=== PATIENT | male | born 1980 | race Caucasian/White ===

== ENCOUNTER 2020-10-21 13:06 | Emergency (ER) | payer OTHER, SELFPAY ==
--- NOTE | ~2020-10-21 | XR_ITS ---
EXAMINATION: XR CHEST CLINICAL INFORMATION: Palpitations COMPARISON: None TECHNIQUE: 2 views of the chest were obtained. FINDINGS: The lungs are clear. The heart is normal in size. The vascularity is normal. There is no vascular congestion, airspace consolidation, pleural reaction, or effusion. The hilar and mediastinal contours are normal. There is mild levocurvature lower thoracic spine. XR/XR chest 2V IMPRESSION: Unremarkable examination.
[2020-10-21 13:12] VITALS: BP 156/75; PULSE 106; RESP 18; TEMP 36.6; O2SAT 99; BMI 27.2
--- NOTE | 2020-10-21 14:00 | ECG_ITS ---
Test Reason : CP Blood Pressure : / mmHG Vent. Rate : 086 BPM Atrial Rate : 086 BPM P-R Int : 170 ms QRS Dur : 084 ms QT Int : 348 ms P-R-T Axes : 068 056 059 degrees QTc Int : 416 ms Sinus rhythm with marked sinus arrhythmia Normal EKG No previous ECGs available Referred By: Kylah Haro Electronically Signed By:NANCIE NG
--- NOTE | 2020-10-21 14:01 | ED.ARRPALP ---
HPI - Arrhythmia/Palpitations General Chief Complaint: Arrhythmia/Palpitations Stated Complaint: palpitations - chest pain Time Seen by Provider: 10/21/20 13:47 Source: patient Mode of arrival: ambulatory Limitations: no limitations History of Present Illness HPI narrative: 40-year-old male previously healthy here with complaints of palpitations which occur intermittently for the last week. He tells me he feels some often times when he is at rest and lying in his bed at night time. They do not seem to be worsened with movement or activity. No fevers or chills. No chest pain, shortness of breath, dizziness. No recent travel or illness. No leg swelling or pain. No family history of sudden cardiac . Of note, he did have COVID-19 in June of 2020. Related Data Allergies Allergy/AdvReac Type Severity Reaction Status Date / Time No Known Allergies Allergy Verified 10/21/20 14:00 Review of Systems Review of Systems: Yes all other systems are reviewed and are negative Constitutional: Constitutional: Reports no additional constitutional complaints, Denies body ache(s), Denies chills, Denies fever(s), Denies headache(s) and Denies weakness Eyes: Eyes: Reports no additional eye complaints and Denies change in vision ENT: Reports system reviewed and no additional complaints, except as documented, Denies dizziness, Denies headache(s), Denies nasal congestion, Denies nasal discharge and Denies neck pain Cardiovascular: Cardiovascular: Reports no additional cardiovascular complaints, Denies chest pain, Denies leg edema, Reports palpitations and Denies dyspnea Respiratory: Respiratory: Reports no additional respiratory complaints, Denies cough and Denies dyspnea Gastrointestinal: Gastrointestinal: Reports no additional gastrointestinal complaints, Denies abdominal pain, Denies diarrhea, Denies nausea and Denies vomiting Genitourinary: Genitourinary: Denies urinary incontinence Musculoskeletal: Musculoskeletal: Reports no additional musculoskeletal complaints, Denies back pain, Denies arthralgias, Denies joint swelling, Denies neck pain, Denies numbness and Denies tingling Integumentary/Breasts: Skin/Breast: Reports system reviewed and no additional complaints, except as docu and Denies rash Neurologic: Reports system reviewed and no additional complaints, except as documented, Denies Abnormal speech present, Denies dizziness, Denies headache(s), Denies numbness, Denies tingling and Denies weakness Endocrine: Endocrine: Reports palpitations PMFSH Past Medical History Attestation statement: The following information was validated with the patient. Source: old records reviewed and nursing notes reviewed Social History Social History Patient Tobacco Use Status: Former Tobacco user Use of substances other than those prescribed or required for medical reasons: No Advance Directives: No Advance Directives Information Provided: No Physical Exam Vital Signs: Vital Signs: Last Vital Signs Temp 98 F 10/21/20 13:12 Pulse 101 H 10/21/20 14:13 Resp 20 10/21/20 14:13 BP 108/75 10/21/20 14:13 Pulse Ox 98 10/21/20 14:13 Body Mass Index 27.2 Const: General: cooperative, healthy appearing, comfortable and no acute distress Orientation/consciousness: patient oriented x3 Limitations: no limitations HENMT: Head: Yes normal to inspection Ears: hearing grossly normal bilaterally General nose exam: Normal external nose present Face and sinus: Yes normal facial exam Mouth: Normal oral and palatal mucosa present Throat: Yes posterior oropharynx normal Eyes: General: appearance normal, both eyes and all related structures Pupils: Equal, round and reactive pupils present Neck: Neck: Yes normal visual inspection Chest: Chest palpation & inspection: normal inspection of the chest Resp: Effort & Inspection: normal respiratory effort Auscultation: clear to auscultation bilaterally Cardio: Rate: regular rate Rhythm: regular rhythm Peripheral pulses: Peripheral pulses 2+ throughout GI: Inspection: Yes normal to inspection Palpation (GI): Soft to palpation and nontender Auscultation: normal bowel sounds Back/Spine/Pelvis: Thoracic/Lumbar Spine: thoracic and lumbar spine normal to inspection Skin: General skin exam: no rashes or lesions noted Neuro: General: patient oriented x3, no focal motor deficits and normal sensation to monofilament Cranial nerves: Yes Equal, round and reactive pupils present Cognition (Neuro): normal cognition Speech: No Abnormal speech present Gait exam (Neuro): Normal gait present Motor exam (neuro): 5/5 motor strength present throughout Extrem: General: Yes normal to inspection, Yes no pedal edema and Yes no calf tenderness Course Course Course Narrative: 40-year-old male here with complaints of intermittent palpitations for the last week which seem to occur at rest with no other associated symptoms. Exam is normal. Hemodynamically stable. Will check labs, EKG, chest x-ray 1500- Labs unremarkable. EKG shows no ischemic changes. Chest x-ray negative. Heart rate has been 70-90 sinus rhythm on the radiographer cardiac catheterization with no arrhythmia as or tachycardia is noted. Patient does appear very anxious. I did discuss this with him but he denies feeling anxious. I recommended he follow-up with a primary care doctor. He was provided with a list. Reviewed worrisome signs symptoms of when to return to the emergency department. Comfortable discharge home. MDM - Arrhythmia/Palpitations MDM Narrative Medical decision making narrative: Less likely ACS with symptoms greater than 7 days with a negative troponin and EKG which shows no ischemic changes. Less likely PE with PERC score 0 Differential Diagnosis Differential diagnosis: Likely palpitations, anxiety and sinus tachycardia Medical Records Attestation: I reviewed the patient's medical records. Lab Data Attestation: I reviewed the patient's lab results. Result diagrams: 10/21/20 14:11 10/21/20 14:11 Labs: Lab Results 10/21/20 10/21/20 10/21/20 Range/Units 14:11 14:11 14:11 WBC 9.0 (4.8-10.8) X10*3/uL RBC 4.51 L (4.60-5.80) X10*6/uL Hgb 13.3 L (14.0-18.0) g/dl Hct 37.5 L (42-52) % MCV 83.1 (80-98) fL MCH 29.5 (27.0-33.0) pg MCHC 35.5 (31.0-36.0) g/dl RDW 12.1 (11.0-16.0) % Plt Count 353 (160-400) X10*3/uL MPV 8.7 L (9.4-12.4) fL Immature Gran % (Auto) 0.3 (0.0-0.4) % Neut % (Auto) 72.8 (45-73) % Lymph % (Auto) 17.4 L (20-40) % [place]flower % (Auto) 8.4 (2-11) % Eos % (Auto) 0.4 (0-4) % Baso % (Auto) 0.7 (0-2) % Lymph # (Auto) 1.6 (1.2-4.9) X10*3/uL [place]flower # (Auto) 0.8 (0.1-1.2) X10*3/uL Eos # (Auto) 0.0 (0.0-0.4) X10*3/uL Baso # (Auto) 0.1 (0.0-0.2) X10*3/uL Abs Immat Gran (auto) 0.03 (0.00-0.03) X10*3/uL Absolute Neuts (auto) 6.5 (2.0-8.3) X10*3/uL Absolute Nucleated RBC 0.000 (0.0-0.012) X10*3/uL Nucleated RBC % (auto) 0.0 (0.0-0.2) /100WBC Sodium 141 (135-145) mmol/L Potassium 4.0 (3.3-5.1) mmol/L Chloride 110 H (96-108) mmol/L Carbon Dioxide 23 (22-29) mmol/L Anion Gap 12 (12-20) BUN 13 (9-16) mg/dL Creatinine 0.97 (0.5-1.4) mg/dL Estim Creat Clear Calc 103.4 Estimated GFR > 60 Random Glucose 93 (60-115) mg/dL Calcium 9.3 (8.4-10.2) mg/dL Magnesium 2.0 (1.6-2.6) mg/dL Total Bilirubin 0.3 (0.0-1.0) mg/dL Direct Bilirubin < 0.2 (0.0-0.5) mg/dL AST 18 (5-37) U/L ALT 26 (0-40) U/L Alkaline Phosphatase 87 (39-117) U/L Troponin I High Sens < 3.5 (<3.5-35.0) ng/L Total Protein 6.9 (6.5-8.0) g/dL Albumin 4.3 (3.5-5.0) g/dL TSH 1.09 (0.32-4.0) uIU/mL Imaging Data Chest x-ray: Attestation: I personally reviewed and interpreted this imaging study as follows: Radiologist's impression: EXAMINATION: XR CHEST CLINICAL INFORMATION: Palpitations COMPARISON: None TECHNIQUE: 2 views of the chest were obtained. FINDINGS: The lungs are clear. The heart is normal in size. The vascularity is normal. There is no vascular congestion, airspace consolidation, pleural reaction, or effusion. The hilar and mediastinal contours are normal. There is mild levocurvature lower thoracic spine. XR/XR chest 2V IMPRESSION: Unremarkable examination. ECG Data Attestation: I personally reviewed and interpreted this ECG as follows: ECG interpretation date: 10/21/20 ECG interpretation time: 11:44 Interpretation: normal sinus rhythm with a rate of 95, normal MI, normal QRS, normal QT Discharge Plan Discharge Clinical Impression: Palpitations Patient Disposition: Home, Self-Care Instructions: Heart Palpitations (ED) Additional Instructions: increase fluids, rest Change positions slowly Follow-up with primary care doctor Referrals: Physician,None [Primary Care Provider] - 2 days Interventions: ED Discharge Assessment Last Done: 10/21/20 15:29 Discharge Date/Time: 10/21/20 15:38
[2020-10-21 14:13] VITALS: BP 108/75; PULSE 101; RESP 20; O2SAT 98
[2020-10-21 14:15] LABS: MANUAL DIFF FLAG NO
--- NOTE | 2020-10-21 14:16 | PC.NURSE ---
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 denies chest pain/sob/nausea. normal sinus on the monitor to sinus tach 89-110
[2020-10-21 14:17] LABS: Basophils Absolute Auto 0.1 X10*3/uL (0.0-0.2); Basophils Percent Auto 0.7 % (0-2); Eosinophils Percent Auto 0.4 % (0-4); Hematocrit 37.5 % (42-52); Hemoglobin 13.3 g/dl (14.0-18.0); Imm Gran Abs Auto 0.03 X10*3/uL (0.00-0.03); Imm Gran Pct Auto 0.3 % (0.0-0.4); Lymphocytes Absolute Auto 1.6 X10*3/uL (1.2-4.9); Lymphocytes Percent Auto 17.4 % (20-40); Mean Corpuscular HGB Conc 35.5 g/dl (31.0-36.0); Mean Corpuscular Hemoglobin 29.5 pg (27.0-33.0); Mean Corpuscular Volume 83.1 fL (80-98); Mean Platelet Volume 8.7 fL (9.4-12.4); Monocytes Absolute Auto 0.8 X10*3/uL (0.1-1.2); Monocytes Percent Auto 8.4 % (2-11); Neutrophils Absolute Auto 6.5 X10*3/uL (2.0-8.3); Neutrophils Percent Auto 72.8 % (45-73); Platelet Count 353 X10*3/uL (160-400); Red Blood Count 4.51 X10*6/uL (4.60-5.80); Red Cell Distribution Width 12.1 % (11.0-16.0)
[2020-10-21 14:43] LABS: Alanine Aminotransferase 26 U/L (0-40); Albumin Level 4.3 g/dL (3.5-5.0); Alkaline Phosphatase 87 U/L (39-117); Anion Gap 12 (12-20); Aspartate Amino Transferase 18 U/L (5-37); Bilirubin Direct < 0.2 mg/dL (0.0-0.5); Bilirubin Total 0.3 mg/dL (0.0-1.0); Blood Urea Nitrogen 13 mg/dL (9-16); Calcium 9.3 mg/dL (8.4-10.2); Carbon Dioxide 23 mmol/L (22-29); Chloride 110 mmol/L (96-108); Creatinine Clr Calc Pharmacy 103.4; Estimated Glomerular Filt Rate > 60; Glucose Random 93 mg/dL (60-115); Sodium 141 mmol/L (135-145); Total Protein 6.9 g/dL (6.5-8.0)
[2020-10-21 14:47] LABS: Troponin-I High Sensitivity < 3.5 ng/L (<3.5-35.0)
[2020-10-21 15:04] LABS: Thyroid Stimulating Hormone 1.09 uIU/mL (0.32-4.0)
== END 2020-10-21 15:38 | disposition home or self-care (01) ==
PROVIDERS: Nurse Practitioner Family; Emergency Provider Emergency Medicine
DX: R00.2 Palpitations (principal); Z86.16 Personal history of COVID-19
CPT/HCPCS: 36415; 71046; 80048; 80076; 83735; 84443; 84484; 85025; 93005; 99284

== ENCOUNTER 2020-11-24 05:56 | Emergency (ER) | payer OTHER, SELFPAY ==
[2020-11-24 06:03] VITALS: BP 155/80; PULSE 94; RESP 18; TEMP 36.8; O2SAT 99; BMI 27.9
--- NOTE | 2020-11-24 06:34 | ECG_ITS ---
Test Reason : ARRYTHMIA Blood Pressure : / mmHG Vent. Rate : 072 BPM Atrial Rate : 072 BPM P-R Int : 146 ms QRS Dur : 086 ms QT Int : 372 ms P-R-T Axes : 039 056 049 degrees QTc Int : 407 ms Normal sinus rhythm Normal ECG When compared with ECG of 21-OCT-2020 14:23, No significant change was found Referred By: Romeo Garza Electronically Signed By:PIYUSH DELGADO MD
--- NOTE | 2020-11-24 06:35 | ED.ARRPALP ---
HPI - Arrhythmia/Palpitations General Chief Complaint: Arrhythmia/Palpitations Stated Complaint: heart palps. Time Seen by Provider: 11/24/20 06:20 Source: patient Mode of arrival: ambulatory Limitations: no limitations History of Present Illness HPI narrative: 40-year-old male who presents emergency department for evaluation of palpitations. Patient states that he was driving when he has sudden onset of a fast heart rate. He states that he can feel his heart beating in his chest. He states that the heart rate was fast and regular, he did not noticed any skipped beats. He then felt tingling and numbness in both hands. He states that his face felt hot. He denied chest pain, shortness of breath, lightheadedness, dizziness, pain in his neck, jaw, back or arms. Patient states that he had a similar episode 3 weeks prior and was in the emergency department and had a negative workup. The patient states he drinks 1 cup of coffee per day. He states that he has no particular stressors or anxiety. The patient does not use any drugs. He states that he did get a COVID-19 infection on June of 2020 since that time he has had a restless sensation in both his legs. He states that his COVID-19 infection was relatively mild and last several days. We did not require hospitalization. Related Data Allergies Allergy/AdvReac Type Severity Reaction Status Date / Time No Known Allergies Allergy Verified 10/21/20 14:00 Review of Systems Review of Systems: Yes all other systems are reviewed and are negative [facility] Past Medical History [facility] Narrative: Past medical history: None. Past surgical history: None. Social history: Patient is employed. He states that he is a former cigarette smoker but is currently vaping nicotine multiple times a day. The patient rarely drinks alcohol. He denies drug use. Medical History COVID Heart palpitations Social History Social History Patient Tobacco Use Status: Former Tobacco user Advance Directives: No Advance Directives Information Provided: No Physical Exam Vital Signs: Vital Signs: Last Vital Signs Temp 98.2 F 11/24/20 06:03 Pulse 94 11/24/20 06:03 Resp 18 11/24/20 06:03 BP 155/80 H 11/24/20 06:03 Pulse Ox 99 11/24/20 06:03 Body Mass Index 27.9 Const: General: cooperative, no acute distress and anxious Orientation/consciousness: oriented to person and oriented to place Limitations: no limitations HENMT: Head: Yes normal to inspection, Yes normocephalic and Yes atraumatic Ears: external ears normal General nose exam: Normal external nose present Face and sinus: Yes normal facial exam Mouth: Normal oral and palatal mucosa present Throat: Yes posterior oropharynx normal Eyes: General: appearance normal, both eyes and all related structures Pupils: Equal, round and reactive pupils present Neck: Neck: Yes normal visual inspection, Yes no lymphadenopathy, Yes trachea midline and Yes supple Chest: Chest palpation & inspection: normal inspection of the chest and normal palpation of entire chest wall Resp: Effort & Inspection: normal respiratory effort and able to speak in complete sentences Auscultation: clear to auscultation bilaterally Cardio: Rate: regular rate Rhythm: regular rhythm Heart sounds: S1 normal heart sound present, S2 normal heart sound present and no murmurs GI: Inspection: Yes normal to inspection Palpation (GI): Soft to palpation, nontender and no guarding Auscultation: normal bowel sounds : General: Yes no CVA tenderness Back/Spine/Pelvis: Back: no CVA tenderness Skin: General skin exam: no rashes or lesions noted Neuro: General: oriented to person and oriented to place Cranial nerves: Yes CN's II-XII intact bilaterally and Yes Equal, round and reactive pupils present Cognition (Neuro): normal cognition Motor exam (neuro): 5/5 motor strength present throughout Extrem: General: Yes normal to inspection Psych: Appearance: grossly normal Speech and movement: Normal speech and movement present Affect: normal affect Attitude: cooperative Thought process: Normal thought process present Thought content: Normal thought content present Course Course Course Narrative: 40-year-old male who presents emergency department for evaluation of palpitations, numbness and tingling is in both hands, and facial flushing. Patient's symptoms started prior to coming to the emergency department. The patient had a similar presentation and was seen in the emergency department on 10/21/2020 with a negative workup. Patient's vital signs revealed an elevated blood pressure of 1 5/80 otherwise was unremarkable. The patient states he was experiencing palpitations while he was on the cardiac sonographer . The monitor showed a normal sinus rhythm rate of 93. Patient did have an elevated respiratory rate of 22 and he was having numbness in his hands. I did order a CBC, CMP, troponin TSH. Will also obtain a 12 lead EKG. The patient will be kept on the cardiac sonographer to watch for any arrhythmias while he is in the department. 0830: The patient's laboratory evaluation was unremarkable including a non elevated TSH and a nondetectable troponin. Twelve EKG was unremarkable. The patient has been resting comfortably since being in the emergency department and there were no arrhythmias noted on the cardiac sonographer. Patient most likely has hyperventilation syndrome. I did discuss this with him. He was advised to stop drinking coffee for least 2 weeks. He was discharged home. The patient was given verbal and printed instructions prior to discharge. The patient was advised to follow-up with his PCP in 2 days and to return to the emergency department if his symptoms get worse or if he develops any new symptoms that are concerning to him. MDM - Arrhythmia/Palpitations Lab Data Result diagrams: 11/24/20 07:16 11/24/20 07:16 Labs: Lab Results 11/24/20 11/24/20 11/24/20 Range/Units 07:16 07:16 07:16 WBC 9.1 (4.8-10.8) X10*3/uL RBC 4.45 L (4.60-5.80) X10*6/uL Hgb 12.8 L (14.0-18.0) g/dl Hct 36.9 L (42-52) % MCV 82.9 (80-98) fL MCH 28.8 (27.0-33.0) pg MCHC 34.7 (31.0-36.0) g/dl RDW 11.9 (11.0-16.0) % Plt Count 348 (160-400) X10*3/uL MPV 8.7 L (9.4-12.4) fL Immature Gran % (Auto) 0.4 (0.0-0.4) % Neut % (Auto) 72.3 (45-73) % Lymph % (Auto) 19.3 L (20-40) % [place] % (Auto) 7.1 (2-11) % Eos % (Auto) 0.6 (0-4) % Baso % (Auto) 0.3 (0-2) % Lymph # (Auto) 1.8 (1.2-4.9) X10*3/uL [place] # (Auto) 0.6 (0.1-1.2) X10*3/uL Eos # (Auto) 0.1 (0.0-0.4) X10*3/uL Baso # (Auto) 0.0 (0.0-0.2) X10*3/uL Abs Immat Gran (auto) 0.04 H (0.00-0.03) X10*3/uL Absolute Neuts (auto) 6.6 (2.0-8.3) X10*3/uL Absolute Nucleated RBC 0.000 (0.0-0.012) X10*3/uL Nucleated RBC % (auto) 0.0 (0.0-0.2) /100WBC Sodium 138 (135-145) mmol/L Potassium 4.0 (3.3-5.1) mmol/L Chloride 106 (96-108) mmol/L Carbon Dioxide 25 (22-29) mmol/L Anion Gap 11 L (12-20) BUN 15 (9-16) mg/dL Creatinine 1.08 (0.5-1.4) mg/dL Estim Creat Clear Calc 100.8 Estimated GFR > 60 Random Glucose 108 (60-115) mg/dL Calcium 9.4 (8.4-10.2) mg/dL Total Bilirubin 0.5 (0.0-1.0) mg/dL AST 18 (5-37) U/L ALT 27 (0-40) U/L Alkaline Phosphatase 77 (39-117) U/L Troponin I High Sens < 3.5 (<3.5-35.0) ng/L Total Protein 6.7 (6.5-8.0) g/dL Albumin 4.2 (3.5-5.0) g/dL TSH 1.22 (0.32-4.0) uIU/mL ECG Data Attestation: I personally reviewed and interpreted this ECG as follows: Interpretation: 0713: Normal sinus rhythm rate of 72, normal VA, QRS and QTC intervals, no ST segment elevation, no ST segment depression, no PACs, no PVCs, this is a normal EKG. Discharge Plan Discharge Clinical Impression: Hyperventilation syndrome, Palpitation Patient Disposition: Home, Self-Care Instructions: Hyperventilation (ED) Additional Instructions: Your laboratory evaluation today was normal including a normal thyroid screening test and a nondetectable troponin (which is a marker of heart injury) Your EKG was unremarkable. While you are here in the emergency department, we did not detect any serious arrhythmias which is also reassuring. Your presentation is consistent with hyperventilation syndrome, this is often triggered by fatigue or stress. Do not drink any caffeine for 2 weeks to see if this improves your symptoms. Follow-up with your doctor in 2 days. Please return to the emergency department if your symptoms get worse or if you develop any symptoms that are concerning to you.
[2020-11-24 07:22] LABS: MANUAL DIFF FLAG NO
[2020-11-24 07:27] LABS: Basophils Percent Auto 0.3 % (0-2); Eosinophils Absolute Auto 0.1 X10*3/uL (0.0-0.4); Eosinophils Percent Auto 0.6 % (0-4); Hematocrit 36.9 % (42-52); Hemoglobin 12.8 g/dl (14.0-18.0); Imm Gran Abs Auto 0.04 X10*3/uL (0.00-0.03); Imm Gran Pct Auto 0.4 % (0.0-0.4); Lymphocytes Absolute Auto 1.8 X10*3/uL (1.2-4.9); Lymphocytes Percent Auto 19.3 % (20-40); Mean Corpuscular HGB Conc 34.7 g/dl (31.0-36.0); Mean Corpuscular Hemoglobin 28.8 pg (27.0-33.0); Mean Corpuscular Volume 82.9 fL (80-98); Mean Platelet Volume 8.7 fL (9.4-12.4); Monocytes Absolute Auto 0.6 X10*3/uL (0.1-1.2); Monocytes Percent Auto 7.1 % (2-11); Neutrophils Absolute Auto 6.6 X10*3/uL (2.0-8.3); Neutrophils Percent Auto 72.3 % (45-73); Platelet Count 348 X10*3/uL (160-400); Red Blood Count 4.45 X10*6/uL (4.60-5.80); Red Cell Distribution Width 11.9 % (11.0-16.0); White Blood Count 9.1 X10*3/uL (4.8-10.8)
[2020-11-24 07:47] LABS: Alanine Aminotransferase 27 U/L (0-40); Albumin Level 4.2 g/dL (3.5-5.0); Alkaline Phosphatase 77 U/L (39-117); Anion Gap 11 (12-20); Aspartate Amino Transferase 18 U/L (5-37); Bilirubin Total 0.5 mg/dL (0.0-1.0); Blood Urea Nitrogen 15 mg/dL (9-16); Calcium 9.4 mg/dL (8.4-10.2); Carbon Dioxide 25 mmol/L (22-29); Chloride 106 mmol/L (96-108); Creatinine Clr Calc Pharmacy 100.8; Estimated Glomerular Filt Rate > 60; Glucose Random 108 mg/dL (60-115); Sodium 138 mmol/L (135-145); Total Protein 6.7 g/dL (6.5-8.0)
[2020-11-24 07:53] LABS: Troponin-I High Sensitivity < 3.5 ng/L (<3.5-35.0)
[2020-11-24 08:08] LABS: TSH reflex Free T4 1.22 uIU/mL (0.32-4.0)
== END 2020-11-24 08:44 | disposition home or self-care (01) ==
PROVIDERS: Emergency Provider Emergency Medicine Emergency Medical Services
DX: R00.2 Palpitations (principal); F45.8 Other somatoform disorders
CPT/HCPCS: 36415; 80053; 84443; 84484; 85025; 93005; 99283; 99284

== ENCOUNTER 2021-01-25 13:33 | Outpatient (REF) | payer OTHER, SELFPAY ==
--- NOTE | ~2021-01-25 | XR_ITS ---
EXAMINATION: XR LUMBOSACRAL SPINE CLINICAL INFORMATION: Lower back pain. COMPARISON: None TECHNIQUE: Three views of the lumbosacral spine. FINDINGS: The lumbar lordosis is maintained. Grade 1 retrolisthesis of L5 on S1 measuring approximately 0.7 cm. No loss of vertebral body height. Mild loss of intervertebral disc height at L5-S1. No lytic or blastic osseous lesion. No abnormal soft tissue calcification. XR/XR lumbar spine 2-3V IMPRESSION: Grade 1 retrolisthesis of L5 on S1 with mild degenerative disc disease.
[2021-01-25 16:41] LABS: MANUAL DIFF FLAG NO
[2021-01-25 16:43] LABS: Appearance Urine CLEAR; Color Urine YELLOW; Glucose Urine UA NEG (NEG); Leukocyte Esterase Urine NEG (NEG); Nitrite Urine NEG (NEG); Specific Gravity - Urine 1.025 (1.005-1.025); Urine Blood NEG (NEG); Urine Ketones NEG (NEG); Urine Protein NEG (NEG-TRACE)
[2021-01-25 16:44] LABS: Basophils Absolute Auto 0.1 X10*3/uL (0.0-0.2); Basophils Percent Auto 0.6 % (0-2); Eosinophils Absolute Auto 0.1 X10*3/uL (0.0-0.4); Eosinophils Percent Auto 0.7 % (0-4); Hematocrit 38.3 % (42-52); Hemoglobin 13.5 g/dl (14.0-18.0); Imm Gran Abs Auto 0.03 X10*3/uL (0.00-0.03); Imm Gran Pct Auto 0.3 % (0.0-0.4); Lymphocytes Absolute Auto 2.6 X10*3/uL (1.2-4.9); Lymphocytes Percent Auto 30.4 % (20-40); Mean Corpuscular HGB Conc 35.2 g/dl (31.0-36.0); Mean Corpuscular Hemoglobin 29.5 pg (27.0-33.0); Mean Corpuscular Volume 83.8 fL (80-98); Mean Platelet Volume 8.8 fL (9.4-12.4); Monocytes Absolute Auto 0.7 X10*3/uL (0.1-1.2); Neutrophils Absolute Auto 5.1 X10*3/uL (2.0-8.3); Platelet Count 397 X10*3/uL (160-400); Red Blood Count 4.57 X10*6/uL (4.60-5.80); White Blood Count 8.6 X10*3/uL (4.8-10.8)
[2021-01-25 17:27] LABS: Alanine Aminotransferase 36 U/L (0-40); Albumin Level 4.4 g/dL (3.5-5.0); Alkaline Phosphatase 83 U/L (39-117); Anion Gap 12 (12-20); Aspartate Amino Transferase 30 U/L (5-37); Bilirubin Total 0.5 mg/dL (0.0-1.0); Blood Urea Nitrogen 12 mg/dL (9-16); Calcium 9.1 mg/dL (8.4-10.2); Carbon Dioxide 24 mmol/L (22-29); Chloride 107 mmol/L (96-108); Cholesterol 172 mg/dL; Estimated Glomerular Filt Rate > 60; Glucose Fasting 84 mg/dL (60-99); HDL Cholesterol 37 mg/dL; LDL Cholesterol Calculated 109 mg/dl; Potassium 4.4 mmol/L (3.3-5.1); Sodium 139 mmol/L (135-145); Total Protein 7.4 g/dL (6.5-8.0); Triglycerides 130 mg/dL
[2021-01-25 17:31] LABS: TSH reflex Free T4 1.21 uIU/mL (0.32-4.0)
== END 2021-01-25 13:34 | disposition home or self-care (01) ==
LOC: HO.HMGCX 13:33
PROVIDERS: PCP Nurse Practitioner Family; Visit Provider Nurse Practitioner Family
DX: M54.50 Low back pain, unspecified (principal); R00.2 Palpitations
CPT/HCPCS: 36415; 72100; 80053; 80061; 81003; 84443; 85025

== ENCOUNTER 2021-02-07 11:26 | Outpatient (REF) | payer OTHER, SELFPAY ==
[2021-02-07 13:44] LABS: MANUAL DIFF FLAG NO
[2021-02-07 13:48] LABS: Basophils Absolute Auto 0.1 X10*3/uL (0.0-0.2); Basophils Percent Auto 0.6 % (0-2); Eosinophils Absolute Auto 0.1 X10*3/uL (0.0-0.4); Eosinophils Percent Auto 1.1 % (0-4); Hematocrit 38.7 % (42-52); Hemoglobin 13.5 g/dl (14.0-18.0); Imm Gran Abs Auto 0.02 X10*3/uL (0.00-0.03); Imm Gran Pct Auto 0.2 % (0.0-0.4); Lymphocytes Absolute Auto 2.6 X10*3/uL (1.2-4.9); Lymphocytes Percent Auto 32.1 % (20-40); Mean Corpuscular HGB Conc 34.9 g/dl (31.0-36.0); Mean Corpuscular Hemoglobin 29.2 pg (27.0-33.0); Mean Corpuscular Volume 83.6 fL (80-98); Mean Platelet Volume 8.8 fL (9.4-12.4); Monocytes Absolute Auto 0.7 X10*3/uL (0.1-1.2); Neutrophils Absolute Auto 4.6 X10*3/uL (2.0-8.3); Platelet Count 389 X10*3/uL (160-400); Red Blood Count 4.63 X10*6/uL (4.60-5.80); Red Cell Distribution Width 12.1 % (11.0-16.0); White Blood Count 8.1 X10*3/uL (4.8-10.8)
[2021-02-07 14:11] LABS: Iron 98 mcg/dL (45-160); Percent Iron Saturation 25 % (15-50); Total Iron Binding Capacity 387 mcg/dL (228-428); Unsaturated Iron Binding 289 ug/dL
[2021-02-07 14:35] LABS: Ferritin 163 ng/mL (20-250)
[2021-02-07 14:45] LABS: Folate > 20.0 ng/mL (> or = 4.0); Vitamin B12 766 pg/mL (200-900)
== END 2021-02-07 11:27 | disposition home or self-care (01) ==
LOC: HO.HMGCLDS 11:26
PROVIDERS: PCP Nurse Practitioner Family; Visit Provider Nurse Practitioner Family
DX: D64.9 Anemia, unspecified (principal)
CPT/HCPCS: 36415; 82607; 82728; 82746; 83540; 85025

== ENCOUNTER → 2021-02-25 08:38 | Outpatient (REF) | payer OTHER, SELFPAY ==
--- NOTE | 2021-02-25 08:42 | CA_ITS ---
Transthoracic Echocardiogram Patient (Last, First, Middle): Espinoza Delicd A Gender: Male Date of : 1980 Age: 40 Procedure Date: 02/25/2021 Procedure Type: Transthoracic Echocardiogram Location: OP Height: 172.72 cm Weight: 86.18 kg BSA: 2.00 m2 Heart Rate: bpm Patch Washer: EWA Referring MD: Zane Dietrich [facility]- Symptoms: R00.2 - Palpitations Study Quality: Fair ECG Rhythm: Sinus Conclusions: - The left ventricular systolic function is normal. The visually estimated ejection fraction is between 60-65%. - No obvious valvular pathology seen on this study. Findings Left Ventricle Normal left ventricular cavity size. There is normal left ventricular wall thickness. The left ventricular systolic function is normal. The visually estimated ejection fraction is between 60-65%. There is no evidence of regional wall motion abnormalities. Diastolic function is normal for age. Right Ventricle Normal right ventricular cavity size and systolic function. Atria Both atria are normal in size. Aortic Valve There is a normal trileaflet aortic valve. There is no aortic valve stenosis. There is no aortic valve regurgitation. Mitral Valve The mitral valve appears normal. There is no mitral valve regurgitation. There is no mitral valve stenosis. Pulmonic Valve The pulmonic valve was not well visualized. Tricuspid Valve Normal tricuspid valve structure. There is trace tricuspid valve regurgitation. The pulmonary artery systolic pressure is normal. Great Vessels The aortic annulus, sinuses of valsalva, and asc aorta are normal in size. Venous The inferior vena cava is normal in size and collapses greater than 50% with inspiration. Pericardium/Pleural There is no evidence of pericardial effusion. Prior Study Comparison No prior study available for comparison. Recommendations, Care & Conclusions No obvious valvular pathology seen on this study. Measurements Right Ventricle TAPSE (mm): 2.53 Tricuspid Valve RA Press: 3.00 Updated in Other Vendor System with Status of Final Tom Huber MD electronically signed on 02/26/2021 1:37:46 PM with status of Final
--- NOTE | 2021-02-25 08:42 | ECG_ITS ---
Hook-up date: 2021-02-25 10:49:00 Duration: 47:59:00 Test Indications: PALPITATIONS Medications: [id number] QRS complexes * Ventricular ectopics which represent % of total QRS comp. 2 Supraventricular ectopics which represent <1 % of total QRS comp. * Paced QRS complexs which represent % of total QRS comp. VENTRICULAR ECTOPY * Isolated * Bigeminal Cycles * Couplets * Runs * Beats in Runs * Beats LONGEST at * BPM at :: -- * Beats FASTEST at * BPM at :: -- SUPRAVENTRICULAR ECTOPY 2 Isolated 0 Couplets 0 Runs 0 Beats in Runs * Beats LONGEST at * BPM at :: -- * Beats FASTEST at * BPM at :: -- HEART RATES 49 MIN at 23:55:39 2021-02-25 82 AVG 180 MAX at 05:11:41 2021-02-26 LONGEST RR 1.3680 secs at 12:48:46 2021-02-26 S-T LEVELS Channel 1 - 128 mm at 10:49:00 2021-02-25 - 128 mm at 10:49:00 2021-02-25 Channel 2 - 128 mm at 10:49:00 2021-02-25 - 128 mm at 10:49:00 2021-02-25 Channel 3 - 128 mm at 03:00:81 -- - 128 mm at 03:00:81 Basic rhythm Normal sinus rhythm No long pause or profound bradycardia No dangerous dysrhythm periods Patient did not report any symptoms in the diary Referred By: Zane Dietrich Overread By: PIYUSH DELGADO MD
== END ==
LOC: HO.CARD 08:38
PROVIDERS: Visit Provider Nurse Practitioner Family
DX: R00.2 Palpitations (principal)
CPT/HCPCS: 93226; 93306

== ENCOUNTER 2021-03-02 11:33 | Outpatient (REF) | payer OTHER, SELFPAY ==
[2021-03-02 14:42] LABS: OBS Int Ctl Valid YES; OBS1 NEGATIVE (NEGATIVE); OBS2 NEGATIVE (NEGATIVE); OBS3 POSITIVE (NEGATIVE)
[2021-03-02 14:43] LABS: OBS Lot 50691
== END 2021-03-02 11:34 | disposition home or self-care (01) ==
LOC: HO.HMGCLNP 11:33
PROVIDERS: Visit Provider Nurse Practitioner Family
DX: D64.9 Anemia, unspecified (principal)
CPT/HCPCS: 82270

== ENCOUNTER 2021-05-04 08:00 | Outpatient (RCR) | payer OTHER, SELFPAY ==
--- NOTE | 2021-03-17 16:02 | MHC.PT.EP ---
[facility] [place] Office [place] [facility] [place] [facility] [address] Zacarias Orellana [address] [phone] F: [phone] F: [phone] F: [phone] F: [phone] Physical Therapy Plan of Care Date of Evaluation: Date of Surgery: Diagnosis: This is a 40 yo male presenting to skilled PT with a script for lumbar DDD Assessment: This is a 40 yo male presenting to skilled PT with a script for lumbar DDD. Patient reports that he fell off his stairs about 20 years ago and since then he has had back pain. He reports that his pain limits him mainly with sleeping (sleeps on his side, and feels the need to switch sides throughout the night). He also finds that he has increased pain with short distance walking. Functionally, he does what he can but has to take breaks with household tasks including lawn care and shoveling. Pain is located at the R side low back and can radiate into the R hip/buttock at times. Pain is described as fire, stabbing and takes my breath. Pain is relieved with bending forward. This is the first time he is attempting physical therapy but reports I don't think this will do anything and I did not want to come. Assessment reveals pain that ranges up to an 8/10. He demos decreased lumbar ROM with excessive thoracic kyphosis, forward head and elevated UT's, poor core strength, impaired gait pattern with antalgic pattern, impaired joint mobility with pain during PA thoracic mobs but relief with lumbar (hypomobility noted). He reports gross functional decline with housework, standing and sleeping. He is a good/fair candidate for skilled PT 2x/wk for 5wks (however patient would only like to come every other week 1x/wk). Frequency and Duration: The patient will be seen 2x/wk for 5wks Short Term Goals: I in HEP Report centralized symptoms for at least 2 weeks Demo proper core stab without cues from PT Demo normal LL and no pain with SIJ special tests Solderer Goals: Demo at least 4/5 core strength Sleeping through the night (75% without waking from pain) Demo proper squat and lift techniques without pain or cues Treatment Plan: Modalities to reduce pain, spasms and effusion. Manual therapy to restore motion and function. Therapeutic exercise to improve strength and flexibility. Neuromuscular re-education for posture and balance. Therapeutic activities to return to functional activities of daily living. Electronically signed by: Nafisa Matthew PT Please sign and return to therapist. Thank you for your referral.
--- NOTE | 2021-05-05 10:44 | MHC.PT.DC ---
[facility] [place] Office [place] Office [place] Office [address] Zacarias Orellana [address] [phone] F: [phone] F: [phone] F: [phone] F: [phone] Physical Therapy Discharge Report Diagnosis: This is a 40 yo male presenting to skilled PT with a script for lumbar DDD Date of Surgery: Date of Evaluation: 03/17/21 Date of Discharge: 05/05/21 Treatments to Date: 5 Cancellations to Date: 0 No Shows to Date: 0 Discharge Status: Recommend MD Follow-up Discharge Summary: Patient continuing to report no change with therapy. Limited compliance with HEP carryover and only comes to PT x1/wk or every other week. He has been provided extensive HEP options and education on importance of mobility and HEP however patient does not believe that it will help. At this time DC due to noncompliance with HEP, little carryover and no progress with PT goals or symptoms. Electronically signed by: Nafisa Matthew, PT Please sign and return to therapist. Thank you for your referral.
== END 2021-05-05 10:45 | disposition home or self-care (01) ==
LOC: HO.PTCHIC 08:00
PROVIDERS: PCP Nurse Practitioner Family; Visit Provider Nurse Practitioner Family
DX: M51.36 Other intervertebral disc degeneration, lumbar region (principal)
CPT/HCPCS: 97110; 97161

== ENCOUNTER → 2021-07-04 09:06 | Outpatient (BNVA) | payer OTHER, SELFPAY | PROVIDERS: PCP Nurse Practitioner Family; Referring Provider Nurse Practitioner Family; Visit Provider Internal Medicine Gastroenterology | DX: K92.2 Gastrointestinal hemorrhage, unspecified (principal); D64.9 Anemia, unspecified | CPT/HCPCS: 99202 ==

== ENCOUNTER 2021-09-01 08:17 | Day surgery (SDC) | payer OTHER, SELFPAY ==
[2021-08-29 10:29] VITALS: BMI 27.9
--- NOTE | 2021-08-31 09:31 | HO.ANESPROP2 ---
Documented by User: Parisa Zaragoza NP 08/31/21 09:32 HPI - Anesthesia Eval Consult details Narrative: 41yo M for Upper Endoscopy and Colonoscopy [facility] Active Problems Active Problems: All Active Problems (Updated 03/03/21 @ 16:53 by Zane Dietrich, [facility]) GI bleed (Acute) DDD (degenerative disc disease), lumbar (Acute) Anemia (Acute) Lower back pain (Acute) Palpitations (Acute) Past Medical History Medical History COVID DDD (degenerative disc disease), lumbar Heart palpitations Family History Family History (Updated 07/04/21 @ 09:19 by NKECHI Zamorano) Paternal Grandfather No problems noted. Paternal Grandmother No problems noted. Social History Social History Housing: House Patient Tobacco Use Status: Former Tobacco user Quit Date: 2 yrs ago Years Smoked: over 1 year ago e-Cigarette/Vaping Use: Currently Using Second Hand Smoke Exposure: No Use of substances other than those prescribed or required for medical reasons: No Are you DNR?: No Advance Directives: No Advance Directives Information Provided: Yes service: No Current occupational status: employed Current occupation: [employer] Current occupational exposures/hazards: No Meds Allergies Allergy/AdvReac Type Severity Reaction Status Date / Time No Known Allergies Allergy Verified 07/04/21 09:17 Exam Exam Date and Time: August 31, 2021 0931 Height,Weight and Vital Signs: Height 5 ft 10 in Weight 88.451 kg Narrative Narrative: EKG 01/2021 Vent. Rate : 072 BPM ? ? Atrial Rate : 072 BPM ?? P-R Int : 146 ms? QRS Dur : 086 ms ? ? QT Int : 372 ms ? ? ? P-R-T Axes : 039 056 049 degrees ?? QTc Int : 407 ms ? Normal sinus rhythm Normal ECG When compared with ECG of 21-OCT-2020 14:23, No significant change was found Holter 02/2021 Basic rhythm Normal sinus rhythm No long pause or profound bradycardia No dangerous dysrhythm periods Patient did not report any symptoms in the diary ECHO 02/2021 Conclusions: - The left ventricular systolic function is normal.? The visually estimated ejection fraction is between 60-65%. ? - No obvious valvular pathology seen on this study.? ?? Assessment and Plan Assessment Anesthesia Assessment: Chart Reviewed Documented by User: Andrés Mendez MD 09/01/21 09:07 [facility] Past Medical History Medical History COVID DDD (degenerative disc disease), lumbar Heart palpitations Family History Family History (Updated 07/04/21 @ 09:19 by NKECHI Zamorano) Paternal Grandfather No problems noted. Paternal Grandmother No problems noted. Family history of problems with anesthesia: No Surgical History History of Problems with Anesthesia: No Social History Social History Housing: House Patient Tobacco Use Status: Former Tobacco user Quit Date: 2 yrs ago Years Smoked: over 1 year ago e-Cigarette/Vaping Use: Currently Using Second Hand Smoke Exposure: No Use of substances other than those prescribed or required for medical reasons: No Are you DNR?: No Advance Directives: No Advance Directives Information Provided: Yes service: No Current occupational status: employed Current occupation: [employer] Current occupational exposures/hazards: No Meds Allergies Allergy/AdvReac Type Severity Reaction Status Date / Time No Known Allergies Allergy Verified 07/04/21 09:17 Exam Airway Mallampati Class: II TM Dist: >3cm Neck ROM: Full Loose/Missing/Broken Teeth: No Assessment and Plan Assessment Anesthesia Assessment: Anesthesia Plan Discussed Final Anesthetic Review Family History of Problems with Anesthesia: No History of Problems with Anesthesia: No NPO: Yes ASA Class: II Final Preanesthetic Review: No Changes in Pt Med Stat, Meds/Allgs Chart Reviewed, Consent Obtained/Reviewed and Anes Risks/Benef Reviewed Patient Risk: Low Procedure Risk: Low Anesthetic Plan Anesthetic Plan: MAC: Disposition: Standard PACU
[2021-09-01 08:35] VITALS: BP 119/73; PULSE 95; RESP 16; TEMP 36.4; O2SAT 98; BMI 27.9
[2021-09-01] MEDS: Lactated Ringers 1,000 ML 100 ML IVCONT (08:44)
--- NOTE | 2021-09-01 08:46 | MHC.SHP ---
Pre-Procedural Eval Section A Date of Service: 09/01/21 Section B Chief Complaint: anemia Relevant Family History (Specify if Yes): No Relevant Social History: Other (specify) (vaping) Present Medications: see Short Stay Collaborative assessment Medical History: Significant History (COVID DDD (degenerative disc disease), lumbar Heart palpitations) History of Previous Operations: No relevant previous surgery Allergies: Allergies Allergy/AdvReac Type Severity Reaction Status Date / Time No Known Allergies Allergy Verified 07/04/21 09:17 Review of Systems Sugical H&P ROS: Negative: Constitution, Cardiovascular, Respiratory, Neurological, Psychiatric, Hem-Onc, Allergic/Immunologic, Gastrointestinal, Genitourinary, Musculoskeletal, Integumentary, Endocrine and Eyes/Ears/Nose/Throat Exam Surgical H&P Exam: Normal: HEENT, Normal: Heart, Normal: Lungs, Normal: Extremities, Normal: Abdomen, Normal: Skin and Normal: Neurological Plan Diagnosis/Plan: Unchanged I have reviewed the history and physical and performed a pertinent physical examination on my patient. No changes have occurred unless specified.
--- NOTE | 2021-09-01 09:29 | P.BOP_ITS ---
Brief Operative Note Date of Service: 09/01/21 Pre-op diagnosis: anemia Post-op diagnosis: same Procedure: see op note Surgeon: Julia Tate MD Anesthesia: MAC Was an Installation Supervisor used for this Procedure?: No Estimated blood loss (mL): 0 Condition: stable Disposition: PACU
--- NOTE | 2021-09-01 09:29 | W.PM.OPN ---
Operative Note Operative Note Date of Service: 09/01/21 Narrative: Operative Information Procedure Description: EGD, Colonoscopy Indication: anemia Anesthesia: MAC FLEXIBLE TRANSORAL UPPER GASTROINTESTINAL ENDOSCOPY AND COLONOSCOPY PROCEDURE NOTE UPPER ENDOSCOPY Consent: Indications for the procedure and potential complications of bleeding, perforation, reaction to medications and missed diagnosis were discussed with the patient and informed consent was obtained. Instrument: Olympus GIF H 190 J mid size upper endoscope Monitoring: Vital signs and clinical assessment, continuous EKG monitoring, Pulse oximetry, Carbon Dioxide monitoring and blood pressure monitoring were done throughout the procedure. Procedure: The patient was placed in the left lateral decubitis position and pre-procedure medications were administered and a bite block was placed. The endoscope was inserted into the mouth and advanced under direct vision to the third part of duodenum. A careful inspection was made as the upper endoscope was withdrawn including a retroflexed examination of the proximal stomach; Findings and interventions are described below. Findings: Larynx:normal Esophagus: GE junction at 39 cm, diaphragm hiatus at 41 cm, consistent with 2 cm sliding hiatal hernia. GEJ with bogginess and edema, erythema consistent with esophagitis, LA grade A. Few islands of pink slamon mucosa noted, bx taken. The esophageal mucosa was granular in appearance, bx taken. Aso appeared to be tertiary contractions. Stomach: mild erythema. Biopsies were obtained. Grade 2 flap valve on retroflexed examination of the cardia. Duodenum: Normal bulb and descending duodenum, bx taken Intervention: Biopsies as noted above COLONOSCOPY Instrument: Olympus variable stiffness pediatric scope 190L Colonoscopy Monitoring: Vital signs and clinical assessment, continuous EKG monitoring, Pulse oximetry, Carbon Dioxide monitoring and blood pressure monitoring were done throughout the procedure. Colon withdrawal time was 8 minutes. Procedure: The patient was placed in the left lateral decubitis position and pre-procedure medications were administered. After a digital rectal examination of the ano-rectum, the video colonoscope was inserted into the rectum and advanced through the colon to the cecum/TI. The colonoscope was slowly withdrawn in a retrograde panoramic fashion and the colon mucosa was carefully examined including a retroflexed view of the rectum. Findings and interventions are described below. Procedure Difficulty: easy Findings: Terminal Ileum-normal Cecum:normal right sided retroflexion with sessile polyp noted in proximal ascending colon, injected with few cc of ORISE and then removed en bloc with cold snare Ascending Colon: normal Transverse Colon -normal Descending Colon:normal Sigmoid Colon: normal Rectum: Retroflexion with moderate sized internal hemorrhoids, grade I Anorectum - normal Colon preparation: [place] Bowel Preparation Scale Right colon; 2 Transverse colon: 2 Left colon; 2 (0 = Unprepared colon segment with mucosa not seen due to solid stool that cannot be cleared. 1 = Portion of mucosa of the colon segment seen, but other areas of the colon segment not well seen due to staining, residual stool and/or opaque liquid. 2 = Minor amount of residual staining, small fragments of stool and/or opaque liquid, but mucosa of colon segment seen well. 3 = Entire mucosa of colon segment seen well with no residual staining, small fragments of stool or opaque liquid) Impression and Post Procedure Diagnosis: Endoscopy Findings: esophagitis hiatal hernia Colonoscopy Findings: polyp internal hemorrhoids Plan: Await Pathology results Repeat Colonoscopy in 5 years due to adenomatous appearing polyp or earlier if clinically indicated High fiber diet leaflet avoid straining at stool, epsom salts and sitz bath, anusol supps or cream consider PPI Above findings were reviewed with the patient and relevant handouts were provided if indicated.
[2021-09-01 10:00] VITALS: BP 98/64; PULSE 108; RESP 20; TEMP 36.5; O2SAT 95
[2021-09-01 10:13] VITALS: BP 93/66; PULSE 112; RESP 20; O2SAT 96
[2021-09-01] MEDS: Acetaminophen 325 MG TABLET 650 MG PO (10:20)
[2021-09-01 10:28] VITALS: BP 118/65; PULSE 104; RESP 20; TEMP 36.7; O2SAT 97
== END 2021-09-01 10:30 | disposition home or self-care (01) ==
PROVIDERS: PCP Nurse Practitioner Family; Visit Provider Internal Medicine Gastroenterology
PROC: (CPT 45385; principal; 2021-09-01 09:30)
DX: D64.9 Anemia, unspecified (principal); D12.2 Benign neoplasm of ascending colon; K64.0 First degree hemorrhoids; K92.2 Gastrointestinal hemorrhage, unspecified; K21.9 Gastro-esophageal reflux disease without esophagitis; K20.80 Other esophagitis without bleeding; K44.9 Diaphragmatic hernia without obstruction or gangrene; R00.2 Palpitations; L81.8 Other specified disorders of pigmentation; Z87.891 Personal history of nicotine dependence
CPT/HCPCS: 45385; 45381; 43239; 88305; 88342

== ENCOUNTER → 2021-09-16 09:22 | Outpatient (BNVA) | payer OTHER, SELFPAY | PROVIDERS: PCP Nurse Practitioner Family; Visit Provider Internal Medicine Gastroenterology | DX: Z13.89 Encounter for screening for other disorder (principal) ==

== ENCOUNTER 2022-12-29 15:04 | Outpatient (AMB) | payer OTHER, SELFPAY ==
[2022-12-29 15:26] VITALS: BP 140/68; PULSE 96; O2SAT 98
--- NOTE | 2022-12-29 15:26 | AM.OFFWIN_ITS ---
Intake Vital Signs 12/29/22 15:26 Weight 174 lb BP 140/68 H Blood Pressure Location Rt brachial Position Sitting Pulse 96 Pulse Source Pulse Oximeter Pulse Oximetry (%) 98 Oxygen Delivery Method Room Air Intake Visit Reasons: EP, Left upper arm tightness Intake Note: Patient here for left upper arm tightness and tingling in fingers for about a day. Patient Tobacco Use Status: Former Tobacco user Quit Date: 2 yrs ago Allergies No Known Allergies Allergy (Verified 12/29/22 15:28) Do you need a note to return to daycare/school/sports/work: No HPI HPI Comments History of Present Illness Details This is a 42-year-old male who presents to the office today for sick visit. Patient complaining of left upper arm tightness and tingling in his left 4th and 5th fingers times 12 hours. Patient states he was doing heavy lifting while at work when his symptoms started. He denies any visual disturbances, facial asymmetry, slurred speech, or weakness of his extremities. He denies any chest pain or shortness of breath. He denies any abdominal pain or nausea/vomiting/diarrhea. Physical exam is otherwise benign patient is neurologically intact H&P most consistent with acute neuropathy, low suspicion for intracranial abnormality or cervical radiculopathy, low concern for acute coronary syndrome given the risk factors. [facility] Medical History COVID DDD (degenerative disc disease), lumbar Heart palpitations Family History Paternal Grandfather No problems noted. Paternal Grandmother No problems noted. Social History Housing: House Patient Tobacco Use Status: Former Tobacco user Quit Date: 2 yrs ago Years Smoked: over 1 year ago e-Cigarette/Vaping Use: Currently Using Second Hand Smoke Exposure: No service: No Current occupational status: employed Current occupation: [employer] Current occupational exposures/hazards: No Review of Systems Const All systems reviewed & are unremarkable except as noted in HPI and below Reports no additional complaints Eyes Reports no additional complaints ENT Reports no additional complaints Card Reports no additional complaints Resp Reports no additional complaints GI Reports no additional complaints Reports no additional complaints Musc Reports no additional complaints Skin/Breast Reports system reviewed and no additional complaints, except as documented Neuro Reports no additional complaints Psych Reports no additional complaints Endo Reports no additional complaints Edwin/Lymph Reports no additional complaints Aller/Immun Reports no additional complaints Physical Exam Vital Signs: Last Vital Signs Pulse 96 12/29/22 15:26 BP 140/68 H 12/29/22 15:26 Pulse Ox 98 12/29/22 15:26 Oxygen Delivery Method Room Air 12/29/22 15:26 Const General: cooperative, healthy appearing, no acute distress and well developed Orientation/consciousness: patient oriented x3 HEENT Head: Yes normal to inspection Ears: hearing grossly normal bilaterally General nose exam: Normal external nose present Face and sinus: Yes normal facial exam Mouth: Normal oral and palatal mucosa present Eyes General: appearance normal, both eyes and all related structures Pupils: Equal, round and reactive pupils present EOM: EOMs intact bilaterally Neck Neck: Yes no meningeal signs Resp Effort & Inspection: normal respiratory effort and no respiratory distress Auscultation: clear to auscultation bilaterally Cardio Rate: regular rate Rhythm: regular rhythm Heart sounds: no gallops, no murmurs and no rubs Peripheral pulses: Peripheral pulses 2+ throughout GI Inspection: No distended Palpation (GI): Soft to palpation and nontender Auscultation: normal bowel sounds Skin General skin exam: no rashes or lesions noted Neuro Other: Subjectively decreased sensation to the left 4th and 5th fingers. General: patient oriented x3, gait normal, no meningeal signs and no focal motor deficits Cranial nerves: Yes CN's II-XII intact bilaterally and Yes Equal, round and reactive pupils present Gait exam (Neuro): Normal gait present Motor exam (neuro): 5/5 motor strength present throughout Extrem General: Yes normal to inspection, Yes full ROM and Yes no clubbing, cyanosis or edema Psych Appearance: grossly normal Mental Status: mental status grossly normal Affect: Anxious affect present Office Procedures EKG Details: Normal sinus rhythm, no acute ischemic changes, no ST T wave changes [id number], Complete Assessment & Plan Assessment & Plan (1) Tingling of left upper extremity: Code(s): R20.2 - Paresthesia of skin Plan: This is an otherwise healthy 42-year-old male who presents to the office c omplaining of left upper arm ?tightness? and tingling in his left 4th and 5th fingers. On physical examination, patient is completely neurologically intact without focal deficit with the exception of subjectively decreased sensation of the left 4th and 5th fingers. His history and physical are most consistent with an acute likely ulnar neuropathy in the setting of heavy lifting. EKG was obtained which showed normal sinus rhythm without acute ischemic changes or ST T wave changes. Patient has no cardiac risk factors and no chest pain to suggest acute coronary syndrome. Low suspicion for other acute intracranial process given patient is neurologically intact. Patient was sent home on a trial of p.o. gabapentin 100 mg at bedtime as needed. I encouraged the patient to follow- up with his PCP regarding anxiety medications. Patient was instructed to follow-up with his PCP or with the emergency room if he were to have persistent/worsening symptoms or if he were to develop any other neurological deficits including facial asymmetry, slurred speech, or visual disturbances. Patient verbalizes understanding and he is in agreement the plan. Additionally, patient requested Tdap booster. This was administered by nursing staff. Orders: Orders AMB EKG-In Office Today Z13.6 - Encounter for screening for cardiovascular disorders Medications: New gabapentin 100 mg PO BEDTIME 7 caps 0RF Coding Level of Care Code Est Pt Level 3 (04794) Diagnoses Tingling of left upper extremity R20.2 CPT Codes EKG - CPT: 29890-[id number], Complete ([id number])
== END 2022-12-29 16:34 | disposition home or self-care (01) ==
PROVIDERS: PCP Nurse Practitioner Family; Visit Provider Physician Assistant Medical
DX: R20.2 Paresthesia of skin (principal); Z23 Encounter for immunization
CPT/HCPCS: 90471; 90715; 93000; 99213

== ENCOUNTER 2023-04-11 13:00 | Emergency (ER) | payer OTHER, SELFPAY ==
[2023-04-11 13:13] VITALS: BP 134/81; PULSE 106; RESP 18; TEMP 36.9; O2SAT 99; BMI 25.3
--- NOTE | 2023-04-11 13:13 | ECG_ITS ---
Test Reason : palpitations Blood Pressure : / mmHG Vent. Rate : 098 BPM Atrial Rate : 098 BPM P-R Int : 138 ms QRS Dur : 080 ms QT Int : 340 ms P-R-T Axes : 085 069 067 degrees QTc Int : 434 ms Normal sinus rhythm with sinus arrhythmia Normal ECG When compared with ECG of 24-NOV-2020 07:13, Nonspecific T wave abnormality now evident in Lateral leads Referred By: Debbie Treadwell Electronically Signed By:NANCIE NG
--- NOTE | 2023-04-11 13:13 | ED_ITS ---
HPI - Arrhythmia/Palpitations General Chief Complaint: Arrhythmia/Palpitations Stated Complaint: Heart palpitations, weakness in left arm Time Seen by Provider: 04/11/23 20:05 History of Present Illness HPI narrative: The patient is a 42-year-old male who works at nights. He worked last night got home at around 08:00. He ate some food and went to bed at around 10:00. About half an hour later he woke up with a sense of his heart pounding and going very fast. He walked around for awhile hoping things would come down. He ultimately called his mother who advised him to see a doctor. He went to his doctor's office where he was told that he would have to come to the emergency room to be evaluated. By that time his heart rate did not seem to be as fast as it had been originally. The patient also had some left arm tingling during the episode. The patient drove himself from his doctor's office to the emergency room here. He has not had any recurrence of the significant symptoms he recently had. The patient says that today's episode is very similar to 2 previous episodes that he has had that brought him to the hospital. Both of these previous episodes were in the summer of 2020. This is the 1st time since then that he has had such significant episode of a sense of palpitations and his heart racing but he says that he has had many less severe episodes for which she has not sought any care. In February of 2021 he had an echocardiogram that showed no abnormalities. The patient's parents are both alive and in their late 60s. Neither parent has had issues with coronary disease. Patient says that he smokes 2 cigars per day. He previously had been a cigarette smoker. Related Data Previous Rx's Medication Instructions Recorded gabapentin 100 mg capsule 100 mg PO BEDTIME #7 caps 12/29/22 Allergies Allergy/AdvReac Type Severity Reaction Status Date / Time No Known Allergies Allergy Verified 12/29/22 15:28 Review of Systems 2 Review of Systems: Yes all other systems are reviewed and are negative [facility], [facility] Past Medical History Medical History COVID DDD (degenerative disc disease), lumbar Heart palpitations Family History Family History Paternal Grandfather No problems noted. Paternal Grandmother No problems noted. Social History Social History Housing: House Alcohol intake: current Alcohol intake frequency: holidays/special occasions only Patient Tobacco Use Status: Former Tobacco user Quit Date: 2 yrs ago Years Smoked: over 1 year ago Smoked in Last 30 Days: Yes e-Cigarette/Vaping Use: Currently Using Second Hand Smoke Exposure: No Use of substances other than those prescribed or required for medical reasons: No Advance Directives: No Advance Directives Information Provided: No service: No Current occupational status: employed Current occupation: [employer] Current occupational exposures/hazards: No Physical Exam 2 Vital Signs: Vital Signs: Last Vital Signs Temp 98.5 F 04/11/23 13:13 Pulse 80 04/11/23 19:39 Resp 18 04/11/23 19:39 BP 135/79 04/11/23 19:39 Pulse Ox 100 04/11/23 19:39 O2 Del Method Room Air 04/11/23 19:39 BMI result Body Mass Index 25.3 Const: General: cooperative, healthy appearing and no acute distress O rientation/consciousness: patient oriented x3 HEENT: Head: Yes normal to inspection Mouth: Normal oral and palatal mucosa present Eyes: General: appearance normal, both eyes and all related structures Neck: Other: No JVD Resp: Effort & Inspection: normal respiratory effort Auscultation: clear to auscultation bilaterally Cardio: Other: No murmur Rate: regular rate Rhythm: regular rhythm GI: Other: Abdomen is soft and nontender without masses Skin: General skin exam: no rashes or lesions noted Neuro: General: patient oriented x3, no focal motor deficits and CN's II-XI intact bilaterally Extrem: Other: No calf swelling or tenderness, no peripheral edema Course Course Course Narrative: RME: 42yo M w/PMHx GI bleed, anemia, DDD, c/o left arm numbness/tingling & palpitations w/increased anxiety x couple weeks. denies CP/SOB. reports acute on chronic issue with neck pain and LUE tingling due to suspected pinched nerve, evaluated by PCP Anxious, tachycardic/fluctuating EKG, labs ordered Full HPI, ROS and PE to be performed by primary ED provider. Medical Decision Making Medical Decision Making [facility] Narrative: Patient is a 42-year-old who presents with a sense of palpitations and tachycardia that woken from sleep this morning. This has happened to him before. He had 2 episodes that brought him to the emergency room in 2020. Today's episode is similar to those episodes. He says that following the episodes in 2020 he wore a Holter monitor for 48 hours. He also had an echocardiogram that was normal in February of 2021. This is the 1st time he has had significant similar episodes since 2020. He says he sometimes has minor episodes that are brief. Clinically the patient looks well. His symptoms resolved spontaneously. He did my best to reassure that no dangerous process seems to be at work. He could be having episodes of SVT. I do not think anything more concerning than that would be very likely. I think he may be discharged with instructions to follow-up with his PCP and possibly get a longer wearable monitor. He was also advised to get an thomas on his smart phone that can help him check his heart rate and rhythm. Lab Data 04/11/23 13:35 04/11/23 13:35 Labs: Lab Results 04/11/23 Range/Units 13:35 WBC 9.1 (4.8-10.8) X10*3/uL RBC 4.84 (4.60-5.80) X10*6/uL Hgb 15.0 (14.0-18.0) g/dl Hct 42.5 (42.0-52.0) % MCV 87.8 (80.0-98.0) fL MCH 31.0 (27.0-33.0) pg MCHC 35.3 (31.0-36.0) g/dl RDW 12.4 (11.0-16.0) % Plt Count 432 H (160-400) X10*3/uL MPV 8.6 L (9.4-12.4) fL Immature Gran % (Auto) 0.2 (0.0-0.4) % Neut % (Auto) 57.2 (45-73) % Lymph % (Auto) 31.1 (20-40) % [place] % (Auto) 9.3 (2-11) % Eos % (Auto) 1.5 (0-4) % Baso % (Auto) 0.7 (0-2) % Lymph # (Auto) 2.8 (1.2-4.9) X10*3/uL [place] # (Auto) 0.9 (0.1-1.2) X10*3/uL Eos # (Auto) 0.1 (0.0-0.4) X10*3/uL Baso # (Auto) 0.1 (0.0-0.2) X10*3/uL Abs Immat Gran (auto) 0.02 (0.00-0.03) X10*3/uL Absolute Neuts (auto) 5.2 (2.0-8.3) x10*3/uL Absolute Nucleated RBC 0.000 (0.0-0.012) X10*3/uL Nucleated RBC % (auto) 0.0 (0.0-0.2) /100WBC Sodium 141 (135-145) mmol/L Potassium 3.7 (3.3-5.1) mmol/L Chloride 110 H (96-108) mmol/L Carbon Dioxide 25 (22-29) mmol/L Anion Gap 10 L (12-20) BUN 13 (9-16) mg/dL Creatinine 0.86 (0.5-1.4) mg/dL Estim Creat Clear Calc 114.3 Estimated GFR > 60 Random Glucose 129 H (60-115) mg/dL Calcium 9.4 (8.4-10.2) mg/dL Magnesium 2.1 (1.6-2.6) mg/dL Total Bilirubin 0.2 (0.0-1.0) mg/dL Direct Bilirubin < 0.2 (0.0-0.5) mg/dL AST 20 (5-37) U/L ALT 26 (0-40) U/L Alkaline Phosphatase 73 (39-117) U/L Troponin I High Sens < 2.7 (<3.5-35.0) ng/L Total Protein 7.0 (6.5-8.0) g/dL Albumin 4.3 (3.5-5.0) g/dL TSH 1.32 (0.32-4.0) uIU/mL Independent Interpretation I performed an independent interpretation of an: EKG Interpretation: EKG at 13:25 shows normal sinus rhythm with a sinus arrhythmia at 90 beats per minute. No obvious acute ischemic changes. Her Discharge Plan Discharge Clinical Impression: Palpitations, Tachycardia Patient Disposition: Home, Self-Care Instructions: Heart Palpitations (ED) Additional Instructions: Your testing in the emergency room today is very reassuring. I do not think you are having a heart attack or other acutely dangerous process. I think you would be reasonable for you to talk to your regular doctor about getting some kind of a wearable tool designer that you might wear for 2 weeks or even a month. Additionally you can try to from find an thomas on your phone which can help you check your heart rate and rhythm whenever you are feeling symptoms. So please contact your regular doctors office tomorrow to set up a follow-up appointment. Return to the emergency room if worse. The Prescriptions: No Action gabapentin 100 mg capsule 100 mg PO BEDTIME Qty: 7 0RF Referrals: Zane Dietrich, P[facility]ACC[facility]ATOR-BC [Primary Care Provider] - (Palpitations, tachycardia) Interventions: ED Discharge Assessment Last Done: 04/11/23 21:00 Discharge Date/Time: 04/11/23 21:01
[2023-04-11 13:42] LABS: MANUAL DIFF FLAG NO
[2023-04-11 13:45] LABS: Basophils Absolute Auto 0.1 X10*3/uL (0.0-0.2); Basophils Percent Auto 0.7 % (0-2); Eosinophils Absolute Auto 0.1 X10*3/uL (0.0-0.4); Eosinophils Percent Auto 1.5 % (0-4); Hematocrit 42.5 % (42.0-52.0); Imm Gran Abs Auto 0.02 X10*3/uL (0.00-0.03); Imm Gran Pct Auto 0.2 % (0.0-0.4); Lymphocytes Absolute Auto 2.8 X10*3/uL (1.2-4.9); Lymphocytes Percent Auto 31.1 % (20-40); Mean Corpuscular HGB Conc 35.3 g/dl (31.0-36.0); Mean Corpuscular Volume 87.8 fL (80.0-98.0); Mean Platelet Volume 8.6 fL (9.4-12.4); Monocytes Absolute Auto 0.9 X10*3/uL (0.1-1.2); Monocytes Percent Auto 9.3 % (2-11); Neutrophils Absolute Auto 5.2 x10*3/uL (2.0-8.3); Neutrophils Percent Auto 57.2 % (45-73); Platelet Count 432 X10*3/uL (160-400); Red Blood Count 4.84 X10*6/uL (4.60-5.80); Red Cell Distribution Width 12.4 % (11.0-16.0); White Blood Count 9.1 X10*3/uL (4.8-10.8)
[2023-04-11 14:03] LABS: Alanine Aminotransferase 26 U/L (0-40); Albumin Level 4.3 g/dL (3.5-5.0); Alkaline Phosphatase 73 U/L (39-117); Anion Gap 10 (12-20); Aspartate Amino Transferase 20 U/L (5-37); Bilirubin Direct < 0.2 mg/dL (0.0-0.5); Bilirubin Total 0.2 mg/dL (0.0-1.0); Blood Urea Nitrogen 13 mg/dL (9-16); Calcium 9.4 mg/dL (8.4-10.2); Carbon Dioxide 25 mmol/L (22-29); Chloride 110 mmol/L (96-108); Creatinine Clr Calc Pharmacy 114.3; Estimated Glomerular Filt Rate > 60; Glucose Random 129 mg/dL (60-115); Magnesium 2.1 mg/dL (1.6-2.6); Potassium 3.7 mmol/L (3.3-5.1); Sodium 141 mmol/L (135-145)
[2023-04-11 14:18] LABS: Troponin-I High Sensitivity < 2.7 ng/L (<3.5-35.0)
[2023-04-11 14:29] LABS: TSH reflex Free T4 1.32 uIU/mL (0.32-4.0)
[2023-04-11 19:39] VITALS: BP 135/79; PULSE 80; RESP 18; O2SAT 100
--- NOTE | 2023-04-11 20:00 | PC.NURSE ---
a&ox4, vss and up to date, nsr on the monitor worker. pt c/o nonradiating intermittent c/o palpitations x 1 month. denies any other sx. pt c/o no pain at this time. pt also c/o numbness/tingling in the left hand. no sob/wob notrd. respirations even and unlabored. call vazquez placed within reach.
--- NOTE | 2023-04-11 20:24 | ECG_ITS ---
Test Reason : PALPITATIONS Blood Pressure : / mmHG Vent. Rate : 079 BPM Atrial Rate : 079 BPM P-R Int : 136 ms QRS Dur : 096 ms QT Int : 392 ms P-R-T Axes : 075 067 055 degrees QTc Int : 449 ms Normal sinus rhythm Normal ECG When compared with ECG of 11-APR-2023 13:25, Nonspecific T wave abnormality no longer evident in Lateral leads Referred By: Adonis Borjas Electronically Signed By:NANCIE NG
== END 2023-04-11 21:01 | disposition home or self-care (01) ==
PROVIDERS: Physician Assistant; Emergency Provider Emergency Medicine; PCP Nurse Practitioner Family
DX: R00.2 Palpitations (principal); R00.0 Tachycardia, unspecified; F17.290 Nicotine dependence, other tobacco product, uncomplicated
CPT/HCPCS: 36415; 80048; 80076; 83735; 84443; 84484; 85025; 93005; 99283; 99285

== ENCOUNTER → 2023-04-11 13:13 | Outpatient (BNV) | payer OTHER, SELFPAY | PROVIDERS: Visit Provider Internal Medicine | DX: R00.2 Palpitations (principal) | CPT/HCPCS: 93010 ==

== ENCOUNTER 2023-04-18 08:42 | Outpatient (AMB) | payer OTHER, SELFPAY ==
--- NOTE | 2023-04-18 09:20 | MHC.PC.OV ---
Vital Signs 04/18/23 09:22 Height 5 ft 10 in Weight 174 lb BMI 25.0 BP 122/80 Blood Pressure Location Rt brachial Position Sitting Pulse 82 Pulse Source Pulse Oximeter Pulse Oximetry (%) 98 Oxygen Delivery Method Room Air Intake Visit Reasons: F/U On Medical Issue's Intake Note: Patient here for Heart palpitations/ severe anxiety attacks, he states he has been having neck pain again and since then he has been having these palpitations . Allergies No Known Allergies Allergy (Verified 04/18/23 09:22) Tobacco use date assessed: 04/18/23 Dental Screening Dental Screen Date: 04/18/23 Did you have a dental visit in the last 12 months?: Yes Did you have a dental problem in the last 6 months where you did not have access to dental care?: No Was dental information given to patient?: Patient has dentist HPI F/U On Medical Issue's HPI Details high anxiety. Denies any SI or HI. Pt does not want a therapist. I will start a low dose buspirone and follow up with him. Patient has had palpitations, echo was benign, Holter monitor was benign. [facility] Medical History COVID DDD (degenerative disc disease), lumbar Heart palpitations Family History Paternal Grandfather No problems noted. Paternal Grandmother No problems noted. Social History Housing: House Alcohol intake: current Alcohol intake frequency: holidays/special occasions only Patient Tobacco Use Status: Former Tobacco user Quit Date: 2 yrs ago Years Smoked: over 1 year ago e-Cigarette/Vaping Use: Currently Using Second Hand Smoke Exposure: No service: No Current occupational status: employed Current occupation: [employer] Current occupational exposures/hazards: No Cognitive needs: No Hearing needs: No Vision needs: No Questionnaire Thrive Questionnaire Date Thrive assessed: 01/19/21 AUDIT C Alcohol Use Questionnaire (AUDIT-C) 1. How often do you have a drink containing alcohol?: Never 3. How often do you have six or more drinks on one occasion?: Never Total Score: 0 Score Reviewed/Action Taken: No Physical exam (Primary Care) Vital Signs: Last Vital Signs Pulse 82 04/18/23 09:22 BP 122/80 04/18/23 09:22 Pulse Ox 98 04/18/23 09:22 Oxygen Delivery Method Room Air 04/18/23 09:22 BMI result Body Mass Index 25.0 Tobacco/Smoking Status: Tobacco use Status Tobacco use date assessed 04/18/23 04/18/23 09:26 Patient Tobacco Use Status Former Tobacco user 04/18/23 09:26 e-Cigarette/Vaping Use Currently Using 04/18/23 09:26 Thrive Assessment: Date of Thrive Assessment Date Thrive assessed 01/19/21 04/18/23 09:26 Const General: cooperative, healthy appearing, comfortable, no acute distress and well developed Resp Effort & Inspection: normal respiratory effort Auscultation: clear to auscultation bilaterally Cardio Rate: regular rate Rhythm: regular rhythm Heart sounds: S1 normal heart sound present, S2 normal heart sound present and no murmurs Psych Appearance: grossly normal Mental Status: mental status grossly normal Speech and movement: Normal speech and movement present Affect: normal affect Attitude: cooperative Thought process: Normal thought process present Thought content: Normal thought content present Insight: Good insight present (Psych) Judgement: Good judgement present (Psych) Assessment and Plan Assessment & Plan (1) Palpitations: Code(s): R00.2 - Palpitations (2) Anxiety: Code(s): F41.9 - Anxiety disorder, unspecified Plan: start buspirone, will follow up with him Orders: Orders Comprehensive [place]. Panel Fast Today F41.9 - Anxiety disorder, unspecified, R00.2 - Palpitations UA CC w/rflx Micro + Cult Today F41.9 - Anxiety disorder, unspecified, R00.2 - Palpitations Complete Blood Count Auto Diff Today F41.9 - Anxiety disorder, unspecified, R00.2 - Palpitations TSH reflex Free T4 Today F41.9 - Anxiety disorder, unspecified, R00.2 - Palpitations Lipid Panel Today F41.9 - Anxiety disorder, unspecified, R00.2 - Palpitations Medications: New buspirone 7.5 mg PO BID 60 tabs 3RF 30 days Coding Level of Care Code Est Pt Level 3 (33885) Diagnoses Palpitations R00.2 Anxiety F41.9
[2023-04-18 09:22] VITALS: BP 122/80; PULSE 82; O2SAT 98; BMI 25.0
== END 2023-04-18 10:05 | disposition home or self-care (01) ==
PROVIDERS: PCP Nurse Practitioner Family; Visit Provider Nurse Practitioner Family
DX: R00.2 Palpitations (principal); F41.9 Anxiety disorder, unspecified
CPT/HCPCS: 99213

== ENCOUNTER 2023-04-18 10:05 | Outpatient (REF) | payer OTHER, SELFPAY | END 2023-04-18 10:06 | disposition home or self-care (01) | LOC: HO.HMGCLDS 10:05 | PROVIDERS: PCP Nurse Practitioner Family; Visit Provider Nurse Practitioner Family | DX: R00.2 Palpitations (principal); F41.9 Anxiety disorder, unspecified | CPT/HCPCS: 36415; 80053; 80061; 81003; 84443; 85025 ==

== ENCOUNTER 2023-07-31 07:20 | Outpatient (AMB) | payer OTHER, SELFPAY ==
--- NOTE | 2023-07-31 07:51 | A.OFFPC_ITS ---
Intake Visit Reasons: 3 mnth anxiety f/u-android Allergies No Known Allergies Allergy (Verified 04/18/23 09:22) Medication List - Last Reconciled 07/31/23 by JANES Martinez buspirone 15 mg PO BID 30 days Tobacco use date assessed: 04/18/23 Dental Screening Dental Screen Date: 04/18/23 HPI 3 mnth anxiety f/u-android HPI Details Anxiety: Pt is currently taking buspirone 7.5mg. He is tolerating this med and it is helping somewhat. Will increase buspirone to 15mg bid. Discussed adding an SSRI but pt would not like to do this. Denies any SI and HI. Pt c/o cervical neck pain. He reports radicular symptoms down his LUE. Pt has a hx of D DD. Will order XR. [facility] Medical History COVID DDD (degenerative disc disease), lumbar Heart palpitations Family History Paternal Grandfather No problems noted. Paternal Grandmother No problems noted. Social History Housing: House Alcohol intake: current Alcohol intake frequency: holidays/special occasions only Patient Tobacco Use Status: Former Tobacco user Quit Date: 2 yrs ago Years Smoked: over 1 year ago e-Cigarette/Vaping Use: Currently Using Second Hand Smoke Exposure: No service: No Current occupational status: employed Current occupation: [employer] Current occupational exposures/hazards: No Cognitive needs: No Hearing needs: No Vision needs: No Questionnaire Thrive Questionnaire Date Thrive assessed: 01/19/21 Review of Systems Const Reports as per HPI Physical exam (Primary Care) Tobacco/Smoking Status: Tobacco use Status Tobacco use date assessed 04/18/23 07/31/23 07:51 Patient Tobacco Use Status Former Tobacco user 07/31/23 07:51 e-Cigarette/Vaping Use Currently Using 07/31/23 07:51 Thrive Assessment: Date of Thrive Assessment Date Thrive assessed 01/19/21 07/31/23 07:51 Const General: cooperative Orientation/consciousness: patient oriented x3 Neuro General: patient oriented x3 Psych Appearance: grossly normal Mental Status: mental status grossly normal Speech and movement: Clear speech present Affect: normal affect Attitude: cooperative Thought process: Normal thought process present Thought content: Normal thought content present Insight: Good insight present (Psych) Judgement: Good judgement present (Psych) Assessment and Plan Assessment & Plan (1) Cervical neck pain with evidence of disc disease: Code(s): M50.90 - Cervical disc disorder, unspecified, unspecified cervical region Plan: XR ordered (2) Anxiety: Code(s): F41.9 - Anxiety disorder, unspecified Plan: Increasing buspirone to 15mg bid (3) Palpitations: Code(s): R00.2 - Palpitations Plan The patient agreed to the use of a medical advisor for this encounter. Scribed for AMBAR Manuel-GISSELLE by Marianne Crawley medical advisor, on 07/31/2023 at 07:50 EST. Orders: Orders XR cervical spine 2V Today M50.90 - Cervical disc disorder, unspecified, unspecified cervical region Complete Blood Count Auto Diff Today F41.9 - Anxiety disorder, unspecified, R00.2 - Palpitations Comprehensive [place]. Panel Fast Today F41.9 - Anxiety disorder, unspecified, R00.2 - Palpitations TSH reflex Free T4 Today F41.9 - Anxiety disorder, unspecified, R00.2 - Palpitations Lipid Panel Today F41.9 - Anxiety disorder, unspecified, R00.2 - Palpitations UA CC w/rflx Micro + Cult Today F41.9 - Anxiety disorder, unspecified, R00.2 - Palpitations Medications: Changed From buspirone 7.5 mg PO BID 30 days 60 tabs 3RF To buspirone 15 mg PO BID 30 days 60 tabs 3RF Coding Level of Care Code Tele Est Pt Level 3 (28705) Diagnoses Cervical neck pain with evidence of disc disease M50.90 Anxiety F41.9 Palpitations R00.2
== END 2023-07-31 17:14 | disposition home or self-care (01) ==
PROVIDERS: PCP Nurse Practitioner Family; Visit Provider Nurse Practitioner Family
DX: M50.90 Cervical disc disorder, unspecified, unspecified cervical region (principal); F41.9 Anxiety disorder, unspecified; R00.2 Palpitations
CPT/HCPCS: 99213

== ENCOUNTER 2023-08-07 09:33 | Outpatient (REF) | payer OTHER, SELFPAY ==
--- NOTE | ~2023-08-07 | XR_ITS ---
EXAMINATION: XR CERVICAL SPINE CLINICAL INFORMATION: Cervical disc disorder. COMPARISON: None available. TECHNIQUE: 2 views of the cervical spine. FINDINGS: Straightening of the normal cervical lordosis. Mild spondylosis with loss of disc space height at C4-C5. Alignment maintained. C7 partially obscured by overlying soft tissues. XR/XR cervical spine 2V IMPRESSION: Mild cervical spondylosis at C4-C5.
[2023-08-07 10:22] LABS: MANUAL DIFF FLAG NO
[2023-08-07 10:39] LABS: Basophils Absolute Auto 0.1 X10*3/uL (0.0-0.2); Basophils Percent Auto 0.8 % (0-2); Eosinophils Absolute Auto 0.1 X10*3/uL (0.0-0.4); Eosinophils Percent Auto 0.9 % (0-4); Hematocrit 40.4 % (42.0-52.0); Hemoglobin 14.1 g/dl (14.0-18.0); Imm Gran Abs Auto 0.03 X10*3/uL (0.00-0.03); Imm Gran Pct Auto 0.4 % (0.0-0.4); Lymphocytes Absolute Auto 2.6 X10*3/uL (1.2-4.9); Lymphocytes Percent Auto 34.2 % (20-40); Mean Corpuscular HGB Conc 34.9 g/dl (31.0-36.0); Mean Corpuscular Hemoglobin 29.8 pg (27.0-33.0); Mean Corpuscular Volume 85.4 fL (80.0-98.0); Mean Platelet Volume 8.7 fL (9.4-12.4); Monocytes Absolute Auto 0.6 X10*3/uL (0.1-1.2); Monocytes Percent Auto 8.4 % (2-11); Neutrophils Absolute Auto 4.2 x10*3/uL (2.0-8.3); Neutrophils Percent Auto 55.3 % (45-73); Platelet Count 389 X10*3/uL (160-400); Red Blood Count 4.73 X10*6/uL (4.60-5.80); White Blood Count 7.5 X10*3/uL (4.8-10.8)
[2023-08-07 11:18] LABS: Alanine Aminotransferase 29 U/L (0-40); Albumin Level 4.5 g/dL (3.5-5.0); Alkaline Phosphatase 71 U/L (39-117); Anion Gap 12 (12-20); Aspartate Amino Transferase 19 U/L (5-37); Bilirubin Total 0.6 mg/dL (0.0-1.0); Blood Urea Nitrogen 13 mg/dL (9-16); Calcium 9.8 mg/dL (8.4-10.2); Carbon Dioxide 28 mmol/L (22-29); Chloride 105 mmol/L (96-108); Cholesterol 165 mg/dL (<200); Estimated Glomerular Filt Rate > 60; Glucose Fasting 98 mg/dL (60-99); HDL Cholesterol 46 mg/dL (>40); LDL Cholesterol Calculated 104 mg/dL (<100); Sodium 141 mmol/L (135-145); Total Protein 7.4 g/dL (6.5-8.0); Triglycerides 79 mg/dL (<150)
[2023-08-07 11:34] LABS: TSH reflex Free T4 1.14 uIU/mL (0.32-4.0)
[2023-08-07 13:29] LABS: Appearance Urine Clear; Color Urine Yellow; Glucose Urine UA Negative (Negative); Leukocyte Esterase Urine Negative (Negative); Nitrite Urine Negative (Negative); Specific Gravity - Urine 1.025 (1.005-1.025); Urine Blood Negative (Negative); Urine Ketones Trace mg/dL (Negative); Urine Protein Negative (Neg-Trace)
== END 2023-08-07 09:34 | disposition home or self-care (01) ==
LOC: HO.HMGCX 09:33
PROVIDERS: PCP Nurse Practitioner Family; Visit Provider Nurse Practitioner Family
DX: M47.812 Spondylosis without myelopathy or radiculopathy, cervical region (principal); R79.89 Other specified abnormal findings of blood chemistry; F41.9 Anxiety disorder, unspecified; R00.2 Palpitations
CPT/HCPCS: 36415; 72040; 80053; 80061; 81003; 84443; 85025

== ENCOUNTER 2023-11-22 11:14 | Outpatient (AMB) | payer OTHER, SELFPAY ==
[2023-11-22 11:17] VITALS: BP 122/80; PULSE 86; O2SAT 97; BMI 25.0
--- NOTE | 2023-11-22 11:17 | A.OFFPC_ITS ---
Vital Signs 11/22/23 11:17 Height 5 ft 10 in Weight 174 lb BMI 25.0 BP 122/80 Blood Pressure Location Rt brachial Position Sitting Pulse 86 Pulse Source Pulse Oximeter Pulse Oximetry (%) 97 Oxygen Delivery Method Room Air Intake Visit Reasons: Anxiety F/U Intake Note: pt is here for follow up on anxiety Properties Supervisor Required: No Accompanied by: Self / Same As Patient Allergies No Known Allergies Allergy (Verified 11/22/23 11:18) Medication List - Last Reconciled 11/22/23 by JANES Martinez buspirone 15 mg PO BID 30 days Tobacco use date assessed: 04/18/23 Dental Screening Dental Screen Date: 04/18/23 HPI Anxiety F/U HPI Details Anxiety: Pt is taking buspirone 15mg bid. He reports doing well on this med. Denies any SI and HI. Pt reports intermittent nightmares but states he is able to deal with these. [facility] Medical History DDD (degenerative disc disease), lumbar Heart palpitations COVID Family History Paternal Grandfather No problems noted. Paternal Grandmother No problems noted. Social History Housing: House Alcohol intake: current Alcohol intake frequency: holidays/special occasions only Patient Tobacco Use Status: Former Tobacco user Years Smoked: over 1 year ago e-Cigarette/Vaping Use: Currently Using Second Hand Smoke Exposure: No service: No Current occupational status: employed Current occupation: [employer] Current occupational exposures/hazards: No Cognitive needs: No Hearing needs: No Vision needs: No Questionnaire PHQ-9 Over the last 2 weeks, how often have you been bothered by any of the following problems? 1. Little interest or pleasure in doing things: not at all 2. Feeling down, depressed, or hopeless: not at all 3. Trouble falling or staying asleep, or sleeping too much: more than half the days 4. Feeling tired or having little energy: more than half the days 5. Poor appetite or overeating: not at all 6. Feeling bad about yourself - or that you are a failure or have let yourself or your family down: not at all 7. Trouble concentrating on things, such as reading the newspaper or watching television: not at all 8. Moving or speaking so slowly that other people could have noticed. Or the opposite - being so fidgety or restless that you have been moving around a lot more than usual: not at all 9. Thoughts that you would be better off or of hurting yourself in some way: not at all Total score: 4 Depression Screening Interpretation: Negative Depression Screening Done: Yes 64736 - PHQ-9 Billing: Yes Source: Developed by Drs. Jeff Linares, Leila Becerra, Escobar Meehan and colleagues, with an educational stanislaw from [employer]. Thrive Questionnaire Date Thrive assessed: 11/22/23 I am a: Patient What is your living situation today?: I have a steady place to live Within the past 12 months, did the food you bought not last and you didn't have the money to get more?: Never true Within the past 12 months, did you worry whether your food would run out before you got money to buy more?: Never true Do you have trouble paying for medicines?: No Do you have trouble getting transportation to medical appointments?: No Do you have trouble paying your heating and electricity bill?: No Do you have trouble taking care of your child, family member or friend?: No Do you have trouble with day-to-day activities such as bathing, preparing meals, shopping, managing finances, etc.?: No Are you currently unemployed and looking for a job?: No Are you interested in more education?: No Please select the resources that you would like help with: Housing/Residential Currently or been in a relationship where the following occur: No concerns reported THRIVE Score: 0 AUDIT C Alcohol Use Questionnaire (AUDIT-C) 1. How often do you have a drink containing alcohol?: Monthly or less 2. How many drinks containing alcohol do you have on a typical day when you are drinking?: 1 or 2 3. How often do you have six or more drinks on one occasion?: Never Total Score: 1 Score Reviewed/Action Taken: Yes ISATU-7 AMB Questionnaire ISATU-7 Date ISATU - 7 assessed: 11/22/23 Feeling nervous, anxious, or on edge: 0 = Not at all Not being able to stop or control worryin = Not at all Worrying too much about different things: 0 = Not at all Trouble relaxin = Not at all Being so restless that it is hard to sit still: 3 = Nearly every day Becoming easily annoyed or irritable: 1 = Several days Feeling afraid as if something awful might happen: 0 = Not at all Total ISATU-7 score (0-4 normal; 5-9 mild; 10-14 moderate; 15-21 severe): 4 Source: Developed by Drs. Jeff Linares, Leila Becerra, Escobar Meehan and colleagues, with an educational stanislaw from [employer]. ISATU-7 Assessment Billing ISATU-7 Assessment Tool: ISATU-7 Assessment 49744 Review of Systems Const Reports as per HPI Physical exam (Primary Care) Vital Signs: Last Vital Signs Pulse 86 11/22/23 11:17 BP 122/80 11/22/23 11:17 Pulse Ox 97 11/22/23 11:17 Oxygen Delivery Method Room Air 11/22/23 11:17 BMI result Body Mass Index 25.0 Tobacco/Smoking Status: Tobacco use Status Tobacco use date assessed 04/18/23 11/22/23 11:19 Patient Tobacco Use Status Former Tobacco user 11/22/23 11:19 e-Cigarette/Vaping Use Currently Using 11/22/23 11:19 PHQ-9: PHQ-9 Score PHQ-9: Total score 4 11/22/23 11:36 Depression Screening Interpretation: Negative Thrive Assessment: Date of Thrive Assessment Date Thrive assessed 11/22/23 11/22/23 11:19 Currently or been in a relationship where the following occur: No concerns reported Const General: cooperative Orientation/consciousness: patient oriented x3 Resp Effort & Inspection: normal respiratory effort Auscultation: clear to auscultation bilaterally Cardio Rate: regular rate Rhythm: regular rhythm Heart sounds: S1 normal heart sound present and S2 normal heart sound present Neuro General: patient oriented x3 Psych Appearance: grossly normal Mental Status: mental status grossly normal Speech and movement: Normal speech and movement present Affect: normal affect Attitude: cooperative Thought process: Normal thought process present Thought content: Normal thought content present Insight: Good insight present (Psych) Judgement: Good judgement present (Psych) Assessment and Plan Assessment & Plan (1) Anxiety: Code(s): F41.9 - Anxiety disorder, unspecified Plan: buspirone is working well Plan The patient agreed to the use of a medical imaging director for this encounter. Scribed for AMBAR Manuel-GISSELLE by Marianne Crawley medical imaging director, on 11/22/2023 at 11:35 EST. Coding Level of Care Code Est Pt Level 3 (49596) Diagnoses Anxiety F41.9 Additional Codes ISATU-7 Assessment Billing - ISATU-7 Assessment Tool: ISATU-7 Assessment 79117 ([id number])
== END 2023-11-22 11:51 | disposition home or self-care (01) ==
PROVIDERS: PCP Nurse Practitioner Family; Visit Provider Nurse Practitioner Family
DX: F41.9 Anxiety disorder, unspecified (principal)
CPT/HCPCS: 96127; 99213

== ENCOUNTER 2023-12-25 13:05 | Outpatient (AMB) | payer OTHER, SELFPAY ==
[2023-12-25 14:09] VITALS: BP 124/82; PULSE 75; TEMP 36.8; O2SAT 98; BMI 25.4
--- NOTE | 2023-12-25 14:09 | MHC.OFFWIV ---
Intake Vital Signs 12/25/23 14:09 Height 5 ft 10 in Weight 177 lb BMI 25.4 BP 124/82 Blood Pressure Location Lt brachial Position Sitting Pulse 75 Pulse Source Pulse Oximeter Temp 98.3 F Temp Source Oral Pulse Oximetry (%) 98 Oxygen Delivery Method Room Air Intake Visit Reasons: EP-Chest pain, dizziness, lt arm numb Intake Note: pt c/o chest pain, dizziness, left arm numbness. Also very anxious. Started 3 days ago Patient Tobacco Use Status: Former Tobacco user Allergies No Known Allergies Allergy (Verified 12/25/23 14:19) Do you need a note to return to daycare/school/sports/work: No HPI HPI Comments History of Present Illness Details 43 y/o male patient who presents to the walk in clinic with c/o chest pain, chest tightness, dizziness and left arm pain. Pt has h/o Anxiety associated with Panic attacks. He is currently taking Buspirone. Declined mental health therapy and declined to see psych. Denies SA or SI. [facility] Medical History DDD (degenerative disc disease), lumbar Heart palpitations COVID Family History Paternal Grandfather No problems noted. Paternal Grandmother No problems noted. Social History Housing: House Alcohol intake: current Alcohol intake frequency: holidays/special occasions only Patient Tobacco Use Status: Former Tobacco user Years Smoked: over 1 year ago e-Cigarette/Vaping Use: Currently Using Second Hand Smoke Exposure: No service: No Current occupational status: employed Current occupation: [employer] Current occupational exposures/hazards: No Cognitive needs: No Hearing needs: No Vision needs: No Physical Exam Vital Signs: Last Vital Signs Temp 98.3 F 12/25/23 14:09 Pulse 75 12/25/23 14:09 BP 124/82 12/25/23 14:09 Pulse Ox 98 12/25/23 14:09 Oxygen Delivery Method Room Air 12/25/23 14:09 BMI result Body Mass Index 25.4 Const General: cooperative, no acute distress and diaphoretic Nutritional Appearance: thin Orientation/consciousness: patient oriented x3 Resp Effort & Inspection: normal respiratory effort Auscultation: clear to auscultation bilaterally, no crackles, no rales, no rhonchi and no wheezes Cardio Heart sounds: S1 normal heart sound present and S2 normal heart sound present Skin General skin exam: no rashes or lesions noted Neuro General: patient oriented x3, gait normal and moves all extremities Psych Speech and movement: Normal speech and movement present Affect: Anxious affect present Thought content: suicidality, no homicidality, no delusions, no hallucinations and No Depressive thoughts present Insight: Good insight present (Psych) Assessment & Plan Assessment & Plan (1) Chest pain: Code(s): R07.9 - Chest pain, unspecified Qualifiers: Chest pain type: unspecified Qualified Code(s): R07.9 - Chest pain, unspecified Plan: Ordered ECG (Normal Sinus) Advised to go to ED if symptoms worse. H/o Anxiety and Panic attacks. Currently on Buspirone. (2) Anxiety: Code(s): F41.9 - Anxiety disorder, unspecified Plan: Continue on Buspirone as directed Encouraged him to see Psych/therapy. Pt declined Mental health provider Discussed other treatment Alternatives for Anxiety Educated on copying techniques. Coding Level of Care Code Est Pt Level 3 (40845) Diagnoses Chest pain, unspecified type R07.9 Chest pain type: unspecified Anxiety F41.9 Time Spent (min) 20
== END 2023-12-25 15:12 | disposition home or self-care (01) ==
PROVIDERS: PCP Nurse Practitioner Family; Visit Provider Nurse Practitioner Family
DX: R07.9 Chest pain, unspecified (principal); F41.9 Anxiety disorder, unspecified
CPT/HCPCS: 93000; 99213

== ENCOUNTER 2024-01-08 12:41 | Outpatient (AMB) | payer OTHER, SELFPAY ==
--- NOTE | 2024-01-08 07:18 | MHC.PC.OV ---
Intake Visit Reasons: per momo Allergies No Known Allergies Allergy (Verified 12/25/23 14:19) Tobacco use date assessed: 04/18/23 Dental Screening Dental Screen Date: 04/18/23 HPI per momo HPI Details Anxiety: Pt is currently taking buspirone 15mg bid. He reports intermittent panic attacks. Pt also reports intermittent palpitations. Cardiac causes were previously ruled out (echo, holter, ekg). Will start sertraline 25mg. Denies any SI and HI. Will follow up with him [facility] Medical History DDD (degenerative disc disease), lumbar Heart palpitations COVID Family History Paternal Grandfather No problems noted. Paternal Grandmother No problems noted. Social History Housing: House Alcohol intake: current Alcohol intake frequency: holidays/special occasions only Patient Tobacco Use Status: Former Tobacco user Years Smoked: over 1 year ago e-Cigarette/Vaping Use: Currently Using Second Hand Smoke Exposure: No service: No Current occupational status: employed Current occupation: [employer] Current occupational exposures/hazards: No Cognitive needs: No Hearing needs: No Vision needs: No Questionnaire Thrive Questionnaire Date Thrive assessed: 11/22/23 ISATU-7 AMB Questionnaire ISATU-7 Date ISATU - 7 assessed: 11/22/23 Source: Developed by Drs. Jeff Linares, Leila Becerra, Escobar Meehan and colleagues, with an educational stanislaw from [employer]. Review of Systems Const Reports as per HPI Physical exam (Primary Care) Tobacco/Smoking Status: Tobacco use Status Tobacco use date assessed 04/18/23 01/08/24 07:19 Patient Tobacco Use Status Former Tobacco user 01/08/24 07:19 e-Cigarette/Vaping Use Currently Using 01/08/24 07:19 Thrive Assessment: Date of Thrive Assessment Date Thrive assessed 11/22/23 01/08/24 07:19 Const General: cooperative Orientation/consciousness: patient oriented x3 Neuro General: patient oriented x3 Psych Appearance: grossly normal Mental Status: mental status grossly normal Speech and movement: Clear speech present Affect: normal affect Attitude: cooperative Thought process: Normal thought process present Thought content: Normal thought content present Insight: Good insight present (Psych) Judgement: Good judgement present (Psych) Assessment and Plan Assessment & Plan (1) Anxiety: Code(s): F41.9 - Anxiety disorder, unspecified Plan: Starting sertraline (2) Palpitations: Code(s): R00.2 - Palpitations Plan: Labs ordered Plan The patient agreed to the use of a medical physics researcher for this encounter. Scribed for AMBAR Manuel-GISSELLE by Marianne Crawley medical physics researcher, on 01/08/2024 at 07:20 EST. Orders: Orders Complete Blood Count Auto Diff Today F41.9 - Anxiety disorder, unspecified, R00.2 - Palpitations Comprehensive Met. Panel Today F41.9 - Anxiety disorder, unspecified, R00.2 - Palpitations UA CC w/rflx Micro + Cult Today F41.9 - Anxiety disorder, unspecified, R00.2 - Palpitations TSH reflex Free T4 Today F41.9 - Anxiety disorder, unspecified, R00.2 - Palpitations Medications: New sertraline 25 mg PO DAILY 90 days 90 tabs 0RF Coding Level of Care Code Tele Est Pt Level 3 (94775) Diagnoses Anxiety F41.9 Palpitations R00.2
== END 2024-01-08 13:25 | disposition home or self-care (01) ==
LOC: HO.HMCC 12:41
PROVIDERS: PCP Nurse Practitioner Family; Visit Provider Nurse Practitioner Family
DX: F41.9 Anxiety disorder, unspecified (principal); R00.2 Palpitations

== ENCOUNTER → 2024-01-08 12:41 | Outpatient (BNVA) | payer OTHER, SELFPAY | PROVIDERS: PCP Nurse Practitioner Family; Visit Provider Nurse Practitioner Family | DX: F41.9 Anxiety disorder, unspecified (principal); R00.2 Palpitations ==

== ENCOUNTER 2024-02-25 11:36 | Outpatient (AMB) | payer OTHER, SELFPAY ==
--- NOTE | 2024-02-25 07:17 | MHC.PC.OV ---
Intake Visit Reasons: f/up regarding anxiety medication Allergies No Known Allergies Allergy (Verified 02/25/24 07:44) Medication List - Last Reconciled 02/25/24 by JANES Martinez buspirone 15 mg PO BID sertraline 25 mg PO DAILY 90 days Tobacco use date assessed: 04/18/23 Dental Screening Dental Screen Date: 04/18/23 HPI f/up regarding anxiety medication HPI Details Anxiety: Pt reports doing well overall. He is taking buspirone 15mg bid and sertraline 25mg (on sertraline for approx 1.5 months now). Pt is weaning off the buspirone, informed pt that he can take this once in the morning if needed. Pt reports having less frequent dizzy spells. Denies any SI and HI. [facility] Medical History DDD (degenerative disc disease), lumbar Heart palpitations COVID Family History Paternal Grandfather No problems noted. Paternal Grandmother No problems noted. Social History Housing: House Alcohol intake: current Alcohol intake frequency: holidays/special occasions only Patient Tobacco Use Status: Former Tobacco user Years Smoked: over 1 year ago e-Cigarette/Vaping Use: Currently Using Second Hand Smoke Exposure: No service: No Current occupational status: employed Current occupation: [employer] Current occupational exposures/hazards: No Cognitive needs: No Hearing needs: No Vision needs: No Questionnaire Thrive Questionnaire Date Thrive assessed: 11/22/23 ISATU-7 AMB Questionnaire ISATU-7 Date ISATU - 7 assessed: 11/22/23 Source: Developed by Drs. Jeff Linares, Leila Becerra, Escobar Mehean and colleagues, with an educational stanislaw from [employer]. Review of Systems Const Reports as per HPI Physical exam (Primary Care) Tobacco/Smoking Status: Tobacco use Status Tobacco use date assessed 04/18/23 02/25/24 07:22 Patient Tobacco Use Status Former Tobacco user 02/25/24 07:22 e-Cigarette/Vaping Use Currently Using 02/25/24 07:22 Thrive Assessment: Date of Thrive Assessment Date Thrive assessed 11/22/23 02/25/24 07:22 Const General: cooperative Orientation/consciousness: patient oriented x3 Neuro General: patient oriented x3 Psych Appearance: grossly normal Mental Status: mental status grossly normal Speech and movement: Clear speech present Affect: normal affect Attitude: cooperative Thought process: Normal thought process present Thought content: Normal thought content present Insight: Good insight present (Psych) Judgement: Good judgement present (Psych) Telehealth Telehealth Telehealth Platform: [email or web address] Location of provider rendering services: practice address Location of patient: address on file Patient Identification confirmed using: Name, : Yes Telehealth method: video Patient verbally consented to treatment: Yes Patient verbally consented to billing insurance company: Yes Patient informed of any privacy concerns related to visit: Yes Minutes spent on Phone/Video with Pt.: 10 Coding Level of Care Code Tele Est Pt Level 3 (11053) Diagnoses Anxiety F41.9 Assessment & Plan Assessment & Plan (1) Anxiety: Code(s): F41.9 - Anxiety disorder, unspecified Category: Medical Plan: cont sertraline at current dose. Will cont to monitor Plan The patient agreed to the use of a medical sales representative for this encounter. Scribed for JANES Manuel by jacob Anna scribe, on 02/25/2024 at 07:15 EST.
== END 2024-02-25 14:23 | disposition home or self-care (01) ==
LOC: HO.HMCC 11:36
PROVIDERS: PCP Nurse Practitioner Family; Visit Provider Nurse Practitioner Family
DX: F41.9 Anxiety disorder, unspecified (principal)

== ENCOUNTER 2024-05-07 10:36 | Outpatient (AMB) | payer OTHER, SELFPAY ==
[2024-05-07 11:14] VITALS: BP 130/80; PULSE 78; O2SAT 98; BMI 26.5
--- NOTE | 2024-05-07 11:14 | A.OFFPC_ITS ---
Vital Signs 05/07/24 11:14 Height 5 ft 10 in Weight 185 lb BMI 26.5 BP 130/80 Blood Pressure Location Lt brachial Pulse 78 Pulse Source Pulse Oximeter Pulse Oximetry (%) 98 Oxygen Delivery Method Room Air Intake Visit Reasons: PE Intake Note: pt is here for PE Software Lead Required: No Accompanied by: Self / Same As Patient Allergies No Known Allergies Allergy (Verified 05/07/24 11:15) Medication List - Last Reconciled 05/07/24 by JUAN Martinez sertraline 25 mg PO DAILY 90 days Tobacco use date assessed: 05/07/24 Dental Screening Dental Screen Date: 05/07/24 Did you have a dental visit in the last 12 months?: Yes Did you have a dental problem in the last 6 months where you did not have access to dental care?: No Was dental information given to patient?: Patient has dentist HPI PE HPI Details History of Present Illness The patient is a 43-year-old male presenting with neck pain and increased anxiety. He has a history of degenerative disc disease and cervical spondylosis, as evidenced by previous X-rays which revealed arthritic changes, particularly in the cervical spine. The neck pain has been persistent and severe, described as shocking sensations radiating down the bilateral upper extremities, and has been exacerbated by certain movements such as neck flexion and chin tucks. The patient reports a positive Spurling's test during the examination. He engages in regular stretching exercises, which previously helped but have become less effective recently. In addition, the patient has been experiencing increased anxiety. He is curren tly on 25 mg of sertraline, which has helped reduce the frequency of panic attacks. However, he still reports some unresolved anxiety, prompting the decision to increase the dose to 50 mg. Health Maintenance Social History - The patient regularly engages in stret fabio exercises, though their effectiveness for his neck pain has decreased recently. Review of Systems - Psychiatric: Reports increased anxiety ; Denies suicidal ideation; Denies homicidal ideation. - Gastrointestinal: Denies blood in stoo l, constipation, or diarrhea. - Respiratory: Denies chest pain or shor tness of breath. Physical Exam General: Cooperative, healthy appearing, comfortable, no acute distress and well developed Orientation: Patient oriented x3 Limitations: No limitations Head: Normal to inspection Ears: Hearing grossly normal bilaterally Nose: Normal external nose present Face and sinus: Normal facial exam Eyes: Appearance normal, both eyes and all related structures Neck: Severe neck pain with cracking and radiculopathy. Positive Spurling's test. Chin tucks and neck flexion exacerbate symptoms. Respiratory: Normal respiratory effort and able to speak in complete sentences. Clear to auscultation bilaterally Cardiovascular: Regular rate and rhythm. Normal S1 and S2 GI: Normal to inspection. Soft to palpation and nontender Skin: No rashes or lesions noted Neuro: Patient oriented x3 Extremities: Severe shocking sensations down bilateral upper extremities. Normal to inspection Results - Previous X-rays show degenerative disc disease and spinoarthritic changes, especially in the cervical spine. Plan - Increase sertraline dosage from 25 mg to 50 mg to manage anxiety. - Order an MRI of the cervical spine due to ongoing symptoms and positive Spurling's test. - Continue with regular stretching exerc ises and review effectiveness. Patient was informed and verbally consented to the use of an ambient scribe for clinic note documentation during this visit. Discussion Notes I discussed with the patient the likely diagnosis of anxiety disorder given his symptoms and the benefits of increasing the sertraline dosage to better manage his anxiety. We reviewed the cervical spine issues and the importance of obtaining an MRI to further evaluate the degenerative changes and possible compression. The patient understands the risks and benefits of the increased medication dosage and the planned imaging. He is advised to continue stretching exercises and return if symptoms worsen. Patient Instructions - Continue taking sertraline as prescrib ed; the dosage will increase from 25 mg to 50 mg. - Schedule an MRI of the cervical spine as ordered. - Continue regular stretching exercises to manage neck pain. - Return if symptoms worsen or new sympt oms arise. [facility] Medical History (Updated 05/07/24 @ 12:23 by Zane Dietrich [facility]) DDD (degenerative disc disease), lumbar Heart palpitations COVID Surgical History (Updated 05/07/24 @ 11:15 by Oj Urbina CMA) No pertinent past surgical history Family History Paternal Grandfather No problems noted. Paternal Grandmother No problems noted. Social History Housing: House Alcohol intake: current Alcohol intake frequency: holidays/special occasions only Patient Tobacco Use Status: Former Tobacco user Years Smoked: over 1 year ago e-Cigarette/Vaping Use: Currently Using Second Hand Smoke Exposure: No service: No Current occupational status: employed Current occupation: [employer] Current occupational exposures/hazards: No Cognitive needs: No Hearing needs: No Vision needs: No Questionnaire PHQ-9 Over the last 2 weeks, how often have you been bothered by any of the following problems? 1. Little interest or pleasure in doing things: more than half the days 2. Feeling down, depressed, or hopeless: not at all 3. Trouble falling or staying asleep, or sleeping too much: more than half the days 4. Feeling tired or having little energy: more than half the days 5. Poor appetite or overeating: not at all 6. Feeling bad about yourself - or that you are a failure or have let yourself or your family down: not at all 7. Trouble concentrating on things, such as reading the newspaper or watching television: not at all 8. Moving or speaking so slowly that other people could have noticed. Or the opp osite - being so fidgety or restless that you have been moving around a lot more than usual: not at all 9. Thoughts that you would be better off or of hurting yourself in some way: not at all Total score: 6 Depression Screening Interpretation: Negative Depression Screening Done: Yes [id number] - PHQ-9 Billing: Yes Source: Developed by Drs. Jeff Linares, Leila Becerra, Escobar Meehan and colleagues, with an educational stanislaw from [employer]. Thrive Questionnaire Date Thrive assessed: 05/07/24 I am a: Patient What is your living situation today?: I have a steady place to live Within the past 12 months, did the food you bought not last and you didn't have the money to get more?: Never true Within the past 12 months, did you worry whether your food would run out before you got money to buy more?: Never true Do you have trouble paying for medicines?: No Do you have trouble getting transportation to medical appointments?: No Do you have trouble paying your heating and electricity bill?: No Do you have trouble taking care of your child, family member or friend?: No Do you have trouble with day-to-day activities such as bathing, preparing meals, shopping, managing finances, etc.?: No Are you currently unemployed and looking for a job?: No Are you interested in more education?: No Please select the resources that you would like help with: None Currently or been in a relationship where the following occur: I choose not to answer THRIVE Score: 0 AUDIT C Alcohol Use Questionnaire (AUDIT-C) 1. How often do you have a drink containing alcohol?: Never 3. How often do you have six or more drinks on one occasion?: Never Total Score: 0 Score Reviewed/Action Taken: Yes ISATU-7 AMB Questionnaire ISATU-7 Date ISATU - 7 assessed: 05/07/24 Feeling nervous, anxious, or on edge: 2 = More than half the days Not being able to stop or control worryin = Several days Worrying too much about different things: 0 = Not at all Trouble relaxin = Several days Being so restless that it is hard to sit still: 3 = Nearly every day Becoming easily annoyed or irritable: 1 = Several days Feeling afraid as if something awful might happen: 1 = Several days Total ISATU-7 score (0-4 normal; 5-9 mild; 10-14 moderate; 15-21 severe): 9 Source: Developed by Drs. Jeff Linares, Leila Becerra, Escobar Meehan and colleagues, with an educational stanislaw from [employer]. ISATU-7 Assessment Billing ISATU-7 Assessment Tool: ISATU-7 Assessment 69568 Physical exam (Primary Care) Vital Signs: Last Vital Signs Pulse 78 05/07/24 11:14 BP 130/80 05/07/24 11:14 Pulse Ox 98 05/07/24 11:14 Oxygen Delivery Method Room Air 05/07/24 11:14 BMI result Body Mass Index 26.5 Tobacco/Smoking Status: Tobacco use Status Tobacco use date assessed 05/07/24 05/07/24 11:15 Patient Tobacco Use Status Former Tobacco user 05/07/24 11:15 e-Cigarette/Vaping Use Currently Using 05/07/24 11:15 PHQ-9: PHQ-9 Score PHQ-9: Total score 6 05/07/24 11:30 Depression Screening Interpretation: Negative Thrive Assessment: Date of Thrive Assessment Date Thrive assessed 05/07/24 05/07/24 11:30 Currently or been in a relationship where the following occur: I choose not to answer Coding Level of Care Code Est Pt Level 3 (05380) Est Pt Prev Care 40-64y(48444) Diagnoses Cervical neck pain with evidence of disc disease M50.90 Radiculitis, cervical M54.12 Anxiety F41.9 Physical exam Z00.00 Additional Codes ISATU-7 Assessment Billing - ISATU-7 Assessment Tool: ISATU-7 Assessment 74291 ([id number]) PHQ-9 - 59735 - PHQ-9 Billing: Yes ([id number]) Assessment & Plan Assessment & Plan (1) Cervical neck pain with evidence of disc disease: Code(s): M50.90 - Cervical disc disorder, unspecified, unspecified cervical region Category: Medical (2) Radiculitis, cervical: Code(s): M54.12 - Radiculopathy, cervical region Category: Medical (3) Anxiety: Code(s): F41.9 - Anxiety disorder, unspecified Category: Medical (4) Physical exam: Code(s): Z00.00 - Encounter for general adult medical examination without abnormal findin gs Category: Medical Plan . Orders: Orders MR cervical spine wo con Today M50.90 - Cervical disc disorder, unspecified, unspecified cervical region, M54.12 - Radiculopathy, cervical region Medications: Changed From sertraline 25 mg PO DAILY 90 days 90 tabs 2RF To sertraline 50 mg PO DAILY 90 days 90 tabs 2RF
== END 2024-05-07 11:58 | disposition home or self-care (01) ==
PROVIDERS: PCP Nurse Practitioner Family; Visit Provider Nurse Practitioner Family
DX: Z00.00 Encounter for general adult medical examination without abnormal findings (principal); M50.90 Cervical disc disorder, unspecified, unspecified cervical region; M54.12 Radiculopathy, cervical region; F41.9 Anxiety disorder, unspecified

== ENCOUNTER → 2024-05-07 10:36 | Outpatient (BNVA) | payer OTHER, SELFPAY | PROVIDERS: PCP Nurse Practitioner Family; Visit Provider Nurse Practitioner Family | DX: Z00.00 Encounter for general adult medical examination without abnormal findings (principal); M47.22 Other spondylosis with radiculopathy, cervical region; M50.30 Other cervical disc degeneration, unspecified cervical region; F41.9 Anxiety disorder, unspecified; Z79.899 Other long term (current) drug therapy | CPT/HCPCS: 96127 ==